=== PATIENT | male | born 1935 | race Caucasian/White ===

== ENCOUNTER 2017-03-31 14:51 | Emergency (ER) | payer MEDICARE, MEDICAID, SELFPAY | END 2017-03-31 17:10 | disposition home or self-care (01) | PROVIDERS: Emergency Provider Emergency Medicine; Family Provider Internal Medicine Adolescent Medicine; Visit Provider Emergency Medicine | DX: R27.0 Ataxia, unspecified (principal); G45.0 Vertebro-basilar artery syndrome; Z95.0 Presence of cardiac pacemaker; N18.3 Chronic kidney disease, stage 3 (moderate); I25.10 Atherosclerotic heart disease of native coronary artery without angina pectoris; I10 Essential (primary) hypertension; E78.5 Hyperlipidemia, unspecified; Z79.899 Other long term (current) drug therapy; Z88.0 Allergy status to penicillin; R06.09 Other forms of dyspnea | CPT/HCPCS: 70450; 80053; 82550; 82553; 83880; 84484; 85025; 93005; 96365; 99284 ==

== ENCOUNTER → 2017-04-03 | Outpatient (CLI) | payer MEDICARE, MEDICAID, SELFPAY | PROVIDERS: Visit Provider Nurse Practitioner Family | DX: E86.0 Dehydration (principal); D64.9 Anemia, unspecified | CPT/HCPCS: 36415; 80053; 85025 ==

== ENCOUNTER → 2017-05-13 08:14 | Outpatient (CLI) | payer MEDICARE, MEDICAID, SELFPAY ==
[2017-05-13 08:38] LABS: Basophils % 0.2 % (0.1-2.0); Eosinophils # 0.2 K/mm3 (0.0-0.4); Eosinophils % 2.4 % (0.1-12.0); Hematocrit 31.8 % (42.0-52.0); Hemoglobin 10.4 g/dL (14.1-18.0); Lymphocytes # 1.2 K/mm3 (0.7-4.5); Lymphocytes % 19.8 K/mm3 (10-50); Mean Corpuscular HGB Conc 32.8 g/dL (31.8-35.4); Mean Corpuscular Hemoglobin 31.3 pg (27.0-31.2); Mean Corpuscular Volume 95.7 fl (80-94); Mean Platelet Volume 9.9 fl (7.4-10.4); Monocytes # 0.6 K/mm3 (0.1-1.0); Monocytes % 8.8 % (1.7-9.3); Neutrophils # 4.3 K/mm3 (1.8-7.8); Neutrophils % 68.8 % (37.0-80.0); Platelet Count 289 K/mm3 (142-424); Red Blood Count 3.32 M/mm3 (4.60-6.20); Red Cell Distribution Width 16.8 % (11.5-17.5); White Blood Count 6.2 K/mm3 (4.8-10.8)
[2017-05-13 10:08] LABS: Albumin Level 3.8 gm/dL (3.4-5.0); Blood Urea Nitrogen 20 mg/dL (7-18); Calcium 8.6 mg/dL (8.5-10.1); Chloride 105 mmol/L (98-107); Potassium 4.2 mmoL/L (3.5-5.1); Sodium 145 mmol/L (136-145)
[2017-05-13 10:19] LABS: Alanine Aminotransferase 22 U/L (12-78); Albumin/Globulin Ratio 1.2 (1.1-1.8); Alkaline Phosphatase 109 U/L (46-116); Anion Gap 15.2 mEq/L (5-15); Aspartate Amino Transferase 21 U/L (15-37); Bilirubin,Total 0.4 mg/dL (0.2-1.0); Carbon Dioxide 29 mmol/L (21.0-32.0); Creatinine,Serum 1.35 mg/dL (0.70-1.30); Estimated Glomerular Filt Rate 50 ml/min (>60); GFR (African American) 61 ML/MIN (>60); Globulin 3.2 gm/dl (1.3-3.2); Glucose 116 mg/dL (74-106); Phosphorous 3.4 mg/dL (2.4-4.9)
== END ==
PROVIDERS: PCP Internal Medicine Adolescent Medicine; Visit Provider Internal Medicine Nephrology
DX: N18.3 Chronic kidney disease, stage 3 (moderate) (principal); D64.9 Anemia, unspecified
CPT/HCPCS: 36415; 80053; 84100; 85025

== ENCOUNTER 2017-06-03 05:45 | Emergency (ER) | payer MEDICARE, MEDICAID, SELFPAY ==
[2017-06-03 05:48] VITALS: BP 141/69; PULSE 71; RESP 18; TEMP 36.4; O2SAT 99; BMI 25.2
--- NOTE | 2017-06-03 06:01 | XR_ITS ---
XR hip RT 2-3V w/pelvis HISTORY: ITS.REASON: S/P FALL RIGHT HIP PAIN ORDERING PHYSICIAN: Mauro Putnam MD PATIENT AGE: 82 years COMPARISON: 12/17/2011 FINDINGS: Status post prior ORIF right intertrochanteric fracture with gamma nail and intramedullary kristin present. No acute fracture evident. Generalized vascular calcification. No evidence of prosthesis fracture or dislocation. 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 IMPRESSION: 1. No acute finding. 2. Prior ORIF old right intertrochanteric hip fracture
--- NOTE | 2017-06-03 06:39 | HMH.EDGENADL ---
ED Disposition Clinical Impression: Contusion of hip, right Qualifiers: Encounter type: initial encounter Qualified Code(s): S70.01XA - Contusion of right hip, initial encounter Fall Qualifiers: Encounter type: initial encounter Qualified Code(s): W19.XXXA - Unspecified fall, initial encounter Disposition: Home, Self-Care Condition on Discharge: Good Instructions: How to Prevent Falls Additional Instructions: call pcp for follow up - Critical Care Critical Care Time: No Attestation: On 06/03/17, the high probability of a clinically significant, sudden or life threatening deterioration of the following system(s) required my full and direct attention, intervention and personal management. The time I documented below is in addition to time spent performing reported procedures but includes the following listed in this critical care notation. Medical Decision Making - Medical Records Medical records reviewed: Yes: I reviewed the patient's medical records. Vital Signs: 06/03/17 05:48 Temperature 97.5 F L Temperature Source Oral Pulse Rate [Right Brachial] 71 Respiratory Rate 18 Blood Pressure [Right Arm] 141/69 Blood Pressure Mean [Right Arm] 93 Blood Pressure Source [Right Arm] Automatic Cuff Blood Pressure Position [Right Arm] Sitting 02 Sat by Pulse Oximetry 99 Oxygen Delivery Method Room Air - Lab Data Lab results reviewed: Yes: I reviewed the patient's lab results. Orders (Tests/Meds): ED MEDICATIONS Discontinued Medications Generic Name Dose Route Start Last Admin Trade Name Freq PRN Reason Stop Dose Admin Acetaminophen 650 mg 06/03/17 05:59 06/03/17 06:04 Acetaminophen 325mg Tab PO 06/03/17 06:00 650 mg ONCE ONE Administration - Radiology Data #1 Image(s): Hip Image Reviewed: Yes I reviewed the patient's radiology image Preliminary Findings: No Fracture Seen - Devin Inquiry Pt receiving controlled substance: No General Adult HPI - General Chief complaint: PAIN Stated complaint: fell 06/02/17 right hip injury Time Seen by Provider: 06/03/17 06:39 Mode of Arrival: Family Vehicle Source of Information: Patient, Spouse, Medical Record Limitations: No Limitations Description of Symptoms (Recalled from ER Triage Doc. by RN): S/P FALL YESTERDAY C/O RIGHT HIP PAIN. - History of Present Illness HPI narrative: trip injury rt hip with no other c/o Onset (ago): hour(s) Location: pelvis Severity: moderate - Related Data Allergies Allergy/AdvReac Type Severity Reaction Status Date / Time influenza virus vaccine, Allergy Unknown Verified 06/03/17 05:58 specific [INFLUENZA VIRUS VACC,SPECIFIC] Penicillins [PENICILLINS] Allergy Unknown I-RASH Verified 06/03/17 05:58 [facility] History I have reviewed the patient's past medical history: Yes Medical History: Reports:: Cancer (SKIN), Internal Pacemaker Denies:: Diabetes Mellitus Type 1, Diabetes Mellitus Type 2, MRSA Laterality Cases: Right: Arthroscopy Hip Other Surgeries: Yes: Pacemaker Amputation: No Fractures: No - Social History Smoking Status: Never smoker Alcohol Intake: never - Psychiatric History Expresses thoughts of harming self/others: None Suicide Plan Description: No Plan ROS Obtained: Yes All systems reviewed & no additional complaints - Constitutional Constitutional: Denies fever(s) - Eyes Eyes: Denies change in vision - Cardiovascular Cardiovascular: Denies chest pain at rest - Respiratory Respiratory: No cough - Gastrointestinal Gastrointestingal: Denies: abdominal pain, bloating - Genitourinary Male Genitourinary: Denies hematuria - Musculoskeletal Musculoskeletal: Reports joint pain, Denies back pain, Denies neck pain - Integumentary/Breasts Skin/Breast: Denies rash - Neurologic Neurologic: Denies tingling/numbness/burning sensations, Denies seizure-like activity Physical Exam - General General appearance: alert - Head Head exam
--- NOTE | 2017-06-03 06:42 | ED_ITS ---
ED Disposition Clinical Impression: Contusion of hip, right Qualifiers: Encounter type: initial encounter Qualified Code(s): S70.01XA - Contusion of right hip, initial encounter Fall Qualifiers: Encounter type: initial encounter Qualified Code(s): W19.XXXA - Unspecified fall, initial encounter Disposition: Home, Self-Care Condition on Discharge: Good Instructions: How to Prevent Falls Additional Instructions: call pcp for follow up - Critical Care Critical Care Time: No Attestation: On 06/03/17, the high probability of a clinically significant, sudden or life threatening deterioration of the following system(s) required my full and direct attention, intervention and personal management. The time I documented below is in addition to time spent performing reported procedures but includes the following listed in this critical care notation. Medical Decision Making - Medical Records Medical records reviewed: Yes: I reviewed the patient's medical records. Vital Signs: 06/03/17 05:48 Temperature 97.5 F L Temperature Source Oral Pulse Rate [Right Brachial] 71 Respiratory Rate 18 Blood Pressure [Right Arm] 141/69 Blood Pressure Mean [Right Arm] 93 Blood Pressure Source [Right Arm] Automatic Cuff Blood Pressure Position [Right Arm] Sitting 02 Sat by Pulse Oximetry 99 Oxygen Delivery Method Room Air - Lab Data Lab results reviewed: Yes: I reviewed the patient's lab results. Orders (Tests/Meds): ED MEDICATIONS Discontinued Medications Generic Name Dose Route Start Last Admin Trade Name Freq PRN Reason Stop Dose Admin Acetaminophen 650 mg 06/03/17 05:59 06/03/17 06:04 Acetaminophen 325mg Tab PO 06/03/17 06:00 650 mg ONCE ONE Administration - Radiology Data #1 Image(s): Hip Image Reviewed: Yes I reviewed the patient's radiology image Preliminary Findings: No Fracture Seen - Devin Inquiry Pt receiving controlled substance: No General Adult HPI - General Chief complaint: PAIN Stated complaint: fell 06/02/17 right hip injury Time Seen by Provider: 06/03/17 06:39 Mode of Arrival: Family Vehicle Source of Information: Patient, Spouse, Medical Record Limitations: No Limitations Description of Symptoms (Recalled from ER Triage Doc. by RN): S/P FALL YESTERDAY C/O RIGHT HIP PAIN. - History of Present Illness HPI narrative: trip injury rt hip with no other c/o Onset (ago): hour(s) Location: pelvis Severity: moderate - Related Data Allergies Allergy/AdvReac Type Severity Reaction Status Date / Time influenza virus vaccine, Allergy Unknown Verified 06/03/17 05:58 specific [INFLUENZA VIRUS VACC,SPECIFIC] Penicillins [PENICILLINS] Allergy Unknown I-RASH Verified 06/03/17 05:58 [facility] History I have reviewed the patient's past medical history: Yes Medical History: Reports:: Cancer (SKIN), Internal Pacemaker Denies:: Diabetes Mellitus Type 1, Diabetes Mellitus Type 2, MRSA Laterality Cases: Right: Arthroscopy Hip Other Surgeries: Yes: Pacemaker Amputation: No Fractures: No - Social History Smoking Status: Never smoker Alcohol Intake: never - Psychiatric History Expresses thoughts of harming self/others: None Suicide Plan Description: No Plan ROS Obt
[2017-06-03 06:50] VITALS: BP 113/62; PULSE 72; RESP 20; TEMP 36.4; O2SAT 98
== END 2017-06-03 06:51 | disposition home or self-care (01) ==
PROVIDERS: Emergency Provider Emergency Medicine; Family Provider Internal Medicine Adolescent Medicine
DX: S70.01XA Contusion of right hip, initial encounter (principal); W19.XXXA Unspecified fall, initial encounter; Y92.9 Unspecified place or not applicable; Y99.9 Unspecified external cause status; Z85.828 Personal history of other malignant neoplasm of skin; Z95.0 Presence of cardiac pacemaker
CPT/HCPCS: 73502; 99282

== ENCOUNTER → 2017-06-13 09:38 | Outpatient (CLI) | payer MEDICARE, MEDICAID, SELFPAY ==
--- NOTE | 2017-06-13 10:03 | XR_ITS ---
XR tibia fibula RT 2V COMPARISON: None HISTORY: Right lower leg swelling, suspect cellulitis TECHNIQUE: AP lateral views FINDINGS: The tibia and fibula appear intact with no evidence of recent or old fracture. There is rather severe degenerative change of the knee joint which is at the top of the [id number] showing almost [id number] appearance of the medial joint space. There is mild arteriosclerotic calcification of the posterior tibial artery, is the patient diabetic? The soft tissues appear grossly normal with no obvious soft tissue swelling noted. IMPRESSION: Marked degenerative changes of knee joint. No acute abnormality of the tibia or fibula noted.
--- NOTE | 2017-06-13 10:03 | XR_ITS ---
XR foot RT min 3V COMPARISON: None HISTORY: Right foot pain and swelling, suspect cellulitis TECHNIQUE: AP lateral and oblique views FINDINGS: There are prominent spurs the calcaneus at insertion of plantar tendon and Achilles tendon. There is a prominent plantar arch. There are hammertoe deformities of the second through fifth toes. There is no evidence of recent or old fracture. There is mild soft tissue swelling along medial aspect of the forefoot. Arterial calcification is again noted. IMPRESSION: Calcaneal spurs and mild pes cavus with mild diffuse soft tissue swelling of the forefoot which may be secondary to cellulitis.
[2017-06-13 10:09] LABS: Basophils % 0.2 % (0.1-2.0); Eosinophils # 0.1 K/mm3 (0.0-0.4); Eosinophils % 0.9 % (0.1-12.0); Hematocrit 31.8 % (42.0-52.0); Hemoglobin 9.9 g/dL (14.1-18.0); Lymphocytes # 1.1 K/mm3 (0.7-4.5); Lymphocytes % 17.2 K/mm3 (10-50); Mean Corpuscular HGB Conc 31.2 g/dL (31.8-35.4); Mean Corpuscular Hemoglobin 30.4 pg (27.0-31.2); Mean Corpuscular Volume 97.6 fl (80-94); Mean Platelet Volume 9.9 fl (7.4-10.4); Monocytes # 0.7 K/mm3 (0.1-1.0); Monocytes % 10.4 % (1.7-9.3); Neutrophils # 4.6 K/mm3 (1.8-7.8); Neutrophils % 71.3 % (37.0-80.0); Platelet Count 306 K/mm3 (142-424); Red Blood Count 3.26 M/mm3 (4.60-6.20); Red Cell Distribution Width 16.5 % (11.5-17.5); White Blood Count 6.5 K/mm3 (4.8-10.8)
[2017-06-13 10:18] LABS: Alanine Aminotransferase 22 U/L (12-78); Albumin Level 3.5 gm/dL (3.4-5.0); Albumin/Globulin Ratio 0.9 (1.1-1.8); Alkaline Phosphatase 141 U/L (46-116); Aspartate Amino Transferase 17 U/L (15-37); Bilirubin,Total 0.3 mg/dL (0.2-1.0); Blood Urea Nitrogen 18 mg/dL (7-18); Calcium 8.6 mg/dL (8.5-10.1); Carbon Dioxide 31 mmol/L (21.0-32.0); Chloride 101 mmol/L (98-107); Creatinine,Serum 1.51 mg/dL (0.70-1.30); Estimated Glomerular Filt Rate 44 ml/min (>60); GFR (African American) 54 ML/MIN (>60); Globulin 3.9 gm/dl (1.3-3.2); Glucose 125 mg/dL (74-106); Sodium 137 mmol/L (136-145); Total Protein,Serum 7.4 gm/dL (6.4-8.2)
== END ==
PROVIDERS: Visit Provider Nurse Practitioner Family
DX: L03.115 Cellulitis of right lower limb (principal)
CPT/HCPCS: 36415; 73590; 73630; 80053; 85025; 87040

== ENCOUNTER → 2017-07-07 10:09 | Outpatient (CLI) | payer MEDICARE, MEDICAID, SELFPAY ==
--- NOTE | 2017-07-07 10:29 | NVE_ITS ---
Venous Exam Indications: 729.5 Pain in limb. IMPRESSIONS 1. There is no evidence of significant Reflux. 2. No evidence of deep or superficial vein thrombosis involving the right lower extremity Complete lower extremity venous duplex evaluation. Doppler flow study including spectral analysis, color and lopez scale imaging. Location: Vascular laboratory. Patient status: Outpatient. Tables: Venous flow and imaging: + + + + + Location Overall Flow properties Comments + + + + + Right common femoral Patent Normal phasicity; spontaneous; normal augmentation; compressible + + + + + Right saphenofemoral Patent Compressible junction + + + + + Right profunda Patent Compressible femoral + + + + + Right femoral Patent Normal phasicity; spontaneous; normal augmentation; compressible + + + + + Right greater Patent Normal phasicity; saphenous spontaneous; normal augmentation; compressible + + + + + Right popliteal Patent Normal phasicity; spontaneous; normal augmentation; compressible + + + + + Right posterior Patent Compressible tibial + + + + + Right peroneal Difficult Difficult to study image. + + + + + Right gastrocnemius Patent Compressible + + + + + Right soleal Patent Compressible + + + + + (Report amended ) Electronically signed by: Ray Lo [id number]
== END ==
PROVIDERS: Family Provider Internal Medicine Adolescent Medicine; PCP Internal Medicine Adolescent Medicine; Visit Provider Nurse Practitioner Family
DX: L03.115 Cellulitis of right lower limb (principal); M79.89 Other specified soft tissue disorders
CPT/HCPCS: 93971

== ENCOUNTER → 2017-07-31 10:03 | Outpatient (CLI) | payer MEDICARE, MEDICAID, SELFPAY ==
[2017-07-31 11:07] LABS: Basophils % 0.1 % (0.1-2.0); Eosinophils # 0.1 K/mm3 (0.0-0.4); Hemoglobin 10.3 g/dL (14.1-18.0); Lymphocytes # 0.9 K/mm3 (0.7-4.5); Lymphocytes % 15.4 K/mm3 (10-50); Mean Corpuscular Hemoglobin 31.2 pg (27.0-31.2); Mean Corpuscular Volume 97.4 fl (80-94); Mean Platelet Volume 9.3 fl (7.4-10.4); Monocytes # 0.6 K/mm3 (0.1-1.0); Monocytes % 9.6 % (1.7-9.3); Neutrophils # 4.3 K/mm3 (1.8-7.8); Neutrophils % 73.8 % (37.0-80.0); Platelet Count 273 K/mm3 (142-424); Red Blood Count 3.29 M/mm3 (4.60-6.20); Red Cell Distribution Width 16.5 % (11.5-17.5); White Blood Count 5.8 K/mm3 (4.8-10.8)
[2017-07-31 12:01] LABS: C-Reactive Protein < 0.2 mg/L (0.0-0.9)
[2017-07-31 12:30] LABS: Erythrocyte Sedimentation Rate 53 mm/hr (0-20)
== END ==
PROVIDERS: Visit Provider Podiatrist
DX: L03.90 Cellulitis, unspecified (principal)
CPT/HCPCS: 36415; 85025; 85651; 86140

== ENCOUNTER → 2017-08-13 13:58 | Outpatient (CLI) | payer MEDICARE, MEDICAID, SELFPAY ==
--- NOTE | 2017-08-13 13:59 | US_ITS ---
US Arterial Ankle Brachial Ind ITS.REASON: non healing ulcer ORDERING PHYSICIAN: Elsi Avendaño DPM PATIENT AGE: 82 years TECHNIQUE: Segmental pressures obtained of both right and left leg. These are compared to brachial blood pressure to yield index at each level sampled including summary KUMAR. The data sheets from the procedure are available in PACS FINDINGS Rest study only performed today No prior studies available for comparison. Blood pressures reported are in millimeters mercury. RIGHT LEG KUMAR = .9. Right TBI equals 0.7 Brachial BP: 150 Thigh BP: 172 Calf BP: >254 Ankle PT: 136 Ankle DP : 170 Digit =97 LEFT LEG KUMAR = 1.1 Left TBI 0.6 Brachial BPD: 143 Thigh BP: 174 Calf BP: >254 Ankle PT:162 Ankle DP: 172 Digit = 95 Pulses and waveforms: Normal IMPRESSION: The ABIs as reported above are within normal limits. Waveforms and pulses are also unremarkable. Also are noncompressible at the calves. The TBIs are slightly low suggesting small vessel disease
== END ==
PROVIDERS: Family Provider Internal Medicine Adolescent Medicine; PCP Internal Medicine Adolescent Medicine; Visit Provider Podiatrist
DX: L97.511 Non-pressure chronic ulcer of other part of right foot limited to breakdown of skin (principal)
CPT/HCPCS: 93922

== ENCOUNTER → 2017-12-18 07:57 | Outpatient (CLI) | payer MEDICARE, MEDICAID, SELFPAY ==
[2017-12-18 08:15] LABS: Basophils % 0.2 % (0.1-2.0); Eosinophils # 0.1 K/mm3 (0.0-0.4); Eosinophils % 1.1 % (0.1-12.0); Hematocrit 30.4 % (42.0-52.0); Hemoglobin 9.9 g/dL (14.1-18.0); Lymphocytes # 1.3 K/mm3 (0.7-4.5); Lymphocytes % 15.8 K/mm3 (10-50); Mean Corpuscular HGB Conc 32.6 g/dL (31.8-35.4); Mean Corpuscular Hemoglobin 31.5 pg (27.0-31.2); Mean Corpuscular Volume 96.8 fl (80-94); Monocytes # 0.7 K/mm3 (0.1-1.0); Monocytes % 8.8 % (1.7-9.3); Neutrophils # 6.1 K/mm3 (1.8-7.8); Neutrophils % 74.1 % (37.0-80.0); Platelet Count 252 K/mm3 (142-424); Red Blood Count 3.14 M/mm3 (4.60-6.20); Red Cell Distribution Width 17.1 % (11.5-17.5); White Blood Count 8.2 K/mm3 (4.8-10.8)
[2017-12-18 10:51] LABS: Alanine Aminotransferase 22 U/L (12-78); Albumin Level 3.4 gm/dL (3.4-5.0); Albumin/Globulin Ratio 1.1 (1.1-1.8); Alkaline Phosphatase 111 U/L (46-116); Anion Gap 13.3 mEq/L (5-15); Aspartate Amino Transferase 16 U/L (15-37); Bilirubin,Total 0.6 mg/dL (0.2-1.0); Blood Urea Nitrogen 20 mg/dL (7-18); Calcium 8.5 mg/dL (8.5-10.1); Carbon Dioxide 30 mmol/L (21.0-32.0); Chloride 105 mmol/L (98-107); Chol/HDL Ratio 3.5 (1-3.5); Cholesterol 145 mg/dL (140-200); Creatinine,Serum 1.24 mg/dL (0.70-1.30); Estimated Glomerular Filt Rate 56 ml/min (>60); GFR (African American) 67 ML/MIN (>60); Glucose 107 mg/dL (74-106); HDL Cholesterol 42 mg/dL (27-67); LDL Cholesterol 72 mg/dL (0-130); Potassium 4.3 mmoL/L (3.5-5.1); Sodium 144 mmol/L (136-145); Thyroid Stimulating Hormone 1.19 uIU/ml (0.358-3.740); Total Protein,Serum 6.4 gm/dL (6.4-8.2); Triglycerides 156 mg/dL (30-200); VLDL Cholesterol 31 mg/dL (0-40)
[2017-12-22 05:22] LABS: Treponema pallidum Ab (FTA-ABS Non Reactive (Non Reactive)
== END ==
PROVIDERS: PCP Internal Medicine Adolescent Medicine; Visit Provider Nurse Practitioner Family
DX: E78.5 Hyperlipidemia, unspecified (principal); N18.2 Chronic kidney disease, stage 2 (mild); M10.9 Gout, unspecified; E03.9 Hypothyroidism, unspecified; Z20.2 Contact with and (suspected) exposure to infections with a predominantly sexual mode of transmission
CPT/HCPCS: 36415; 80053; 80061; 84443; 84550; 85025; 86780

== ENCOUNTER → 2018-03-26 09:57 | Outpatient (CLI) | payer MEDICARE, MEDICAID, SELFPAY ==
[2018-03-26 10:53] LABS: Basophils % 0.3 % (0.1-2.0); Eosinophils # 0.1 K/mm3 (0.0-0.4); Eosinophils % 1.3 % (0.1-12.0); Hematocrit 31.9 % (42.0-52.0); Hemoglobin 10.1 g/dL (14.1-18.0); Lymphocytes # 1.2 K/mm3 (0.7-4.5); Lymphocytes % 17.9 % (10-50); Mean Corpuscular HGB Conc 31.7 g/dL (31.8-35.4); Mean Corpuscular Volume 97.9 fl (80-94); Mean Platelet Volume 9.1 fl (7.4-10.4); Monocytes # 0.6 K/mm3 (0.1-1.0); Monocytes % 9.2 % (1.7-9.3); Neutrophils # 4.7 K/mm3 (1.8-7.8); Neutrophils % 71.3 % (37.0-80.0); Platelet Count 310 K/mm3 (142-424); Red Blood Count 3.26 M/mm3 (4.60-6.20); Red Cell Distribution Width 17.4 % (11.5-17.5); White Blood Count 6.6 K/mm3 (4.8-10.8)
[2018-03-26 11:12] LABS: Anion Gap 13.2 mEq/L (5-15); Blood Urea Nitrogen 18 mg/dL (7-18); Calcium 8.7 mg/dL (8.5-10.1); Carbon Dioxide 29 mmol/L (21.0-32.0); Chloride 104 mmol/L (98-107); Creatinine,Serum 1.51 mg/dL (0.70-1.30); Estimated Glomerular Filt Rate 44 ml/min (>60); GFR (African American) 54 ML/MIN (>60); Glucose 129 mg/dL (74-106); Potassium 4.2 mmoL/L (3.5-5.1); Sodium 142 mmol/L (136-145)
== END ==
PROVIDERS: PCP Internal Medicine Adolescent Medicine; Visit Provider Physician Assistant
DX: I65.21 Occlusion and stenosis of right carotid artery (principal); I10 Essential (primary) hypertension; N18.3 Chronic kidney disease, stage 3 (moderate); S70.01XA Contusion of right hip, initial encounter; W19.XXXA Unspecified fall, initial encounter; Z95.0 Presence of cardiac pacemaker
CPT/HCPCS: 36415; 80048; 85025

== ENCOUNTER → 2018-04-02 08:56 | Outpatient (CLI) | payer MEDICARE, MEDICAID, SELFPAY ==
--- NOTE | 2018-04-02 08:59 | CI_ITS ---
Cerebrovascular Exam Indications: 433.10 Occlusion/stenosis of carotid artery without cerebral infarction. IMPRESSIONS 1. Study suggests 50-69% stenosis involving the right internal carotid artery. 2. Study suggests 100% stenosis involving the left internal carotid artery. No change from the study of 31-Jan-2015. Velocities more reduced in left common than on previous study History: Coronary artery disease. Coronary artery disease. Risk factors: Hypertension. Hyperlipidemia. PPM Labs, prior tests, procedures, and surgery: Right endarterectomy. Labs, prior tests, procedures, and surgery: Right endarterectomy. Carotid duplex study. Complete study and Doppler flow study including spectral analysis, color and lopez scale imaging. Location: Vascular laboratory. Patient status: Outpatient. Tables: Arterial flow: + +--------+--------+ Location V sys V ed + +--------+--------+ Right CCA - proximal 65.2cm/s 16.5cm/s + +--------+--------+ Right CCA - distal 123cm/s 28.3cm/s + +--------+--------+ Right ECA 142cm/s -------- + +--------+--------+ Right ICA - proximal 126cm/s 28.5cm/s + +--------+--------+ Right ICA - mid 124cm/s 27.5cm/s + +--------+--------+ Right ICA - distal 131cm/s 30.4cm/s + +--------+--------+ Right vertebral 88.4cm/s -------- + +--------+--------+ Left CCA - proximal 14.3cm/s 2.8cm/s + +--------+--------+ Left CCA - distal 25.1cm/s 6.6cm/s + +--------+--------+ Left ECA 67.3cm/s -------- + +--------+--------+ Velocity ratios: + + + + Right, V sys Right, V ed + + + + Max ICA/dist CCA 1.07 1.07 + + + + (Report amended ) Electronically signed by: Ray Lo [id number]
== END ==
PROVIDERS: PCP Internal Medicine Adolescent Medicine; Visit Provider Internal Medicine
DX: I65.21 Occlusion and stenosis of right carotid artery; N18.3 Chronic kidney disease, stage 3 (moderate); Z95.0 Presence of cardiac pacemaker; I51.9 Heart disease, unspecified
CPT/HCPCS: 93306; 93880

== ENCOUNTER 2018-05-24 05:00 | Emergency (ER) | payer MEDICARE, MEDICAID, SELFPAY ==
[2018-05-24 05:19] VITALS: BP 149/75; PULSE 70; RESP 16; TEMP 36.4; O2SAT 98; BMI 26.3
--- NOTE | 2018-05-24 05:39 | HMH.EDGENADL ---
ED Disposition Clinical Impression: URI (upper respiratory infection), Upper respiratory infection Disposition: Home, Self-Care Condition on Discharge: Good Instructions: DI for Viral Upper Respiratory Infection -- Adult Prescriptions: Azithromycin [Zithromax 250mg tab] 250 mg PO DIRECTED #6 tab Fluticasone Propionate [Flonase 50mcg nasal spray 16gm] 2 spr NS DAILY #1 bottle Referrals: Jonathan Fitzpatrick MD [Primary Care Provider] - Time of Disposition: 05:46 - Critical Care Critical Care Time: No Attestation: On 05/24/18, the high probability of a clinically significant, sudden or life threatening deterioration of the following system(s) required my full and direct attention, intervention and personal management. The time I documented below is in addition to time spent performing reported procedures but includes the following listed in this critical care notation. Medical Decision Making - Devin Inquiry Pt receiving controlled substance: No Devin was queried for this patient: No Vital Signs: 05/24/18 05:19 Temperature 97.6 F Temperature Source Oral Pulse Rate [Right Radial] 70 Respiratory Rate 16 Blood Pressure [Right Arm] 149/75 H Blood Pressure Mean [Right Arm] 99 02 Sat by Pulse Oximetry 98 Orders (Tests/Meds): ORDERS Category Date Time Status Flu A&B Antigens, Rapid [Rapid Influenza A&B Antigens] Lab 05/24/18 05:25 Ordered Stat General Adult HPI - General Chief complaint: Upper Respiratory Infection Stated complaint: cough,head congested,headache Time Seen by Provider: 05/24/18 05:15 Mode of Arrival: Ambulatory Source of Information: Patient, Relative Limitations: No Limitations Description of Symptoms (Recalled from ER Triage Doc. by RN): head, nasal, and sinus congestion x 1 day. denies cough or fever. - History of Present Illness HPI narrative: nasal congestion, facial pain, not febrile. Family member relates he gets an infection rarely and typically responds to abx. - Related Data Home Medications Medication Instructions Recorded Confirmed allopurinol 100 mg tablet 100 mg PO DAILY 07/31/17 04/28/18 atenolol 25 mg tablet 25 mg PO DAILY 07/31/17 04/28/18 clopidogrel 75 mg tablet 75 mg PO DAILY 07/31/17 04/28/18 doxazosin 4 mg tablet 4 mg PO DAILY 07/31/17 04/28/18 famotidine 20 mg tablet 20 mg PO QHS 07/31/17 04/28/18 furosemide 40 mg tablet 40 mg PO DAILY 07/31/17 04/28/18 gabapentin 100 mg capsule 100 mg PO QHS 07/31/17 04/28/18 levothyroxine 50 mcg capsule 50 mcg PO DAILY 07/31/17 04/28/18 potassium chloride ER 10 mEq 10 meq PO BID 07/31/17 04/28/18 capsule,extended release pravastatin 40 mg tablet 40 mg PO QHS 07/31/17 04/28/18 Previous Rx's Medication Instructions Recorded Hydrocortisone [Hydrocortisone 1% 30 gm TP BID #1 tube 04/28/18 Cream 30gm Tube] Azithromycin [Zithromax 250mg 250 mg PO DIRECTED #6 tab 05/24/18 tab] Fluticasone Propionate [Flonase 2 spr NS DAILY #1 bottle 05/24/18 50mcg nasal spray 16gm] Allergies Allergy/AdvReac Type Severity Reaction Status Date / Time influenza virus vaccine, Allergy Unknown Verified 05/24/18 05:23 specific [INFLUENZA VIRUS VACC,SPECIFIC] Penicillins [PENICILLINS] Allergy Unknown I-RASH Verified 05/24/18 05:23 [facility] History - Hepatitis A Screen Drug use history?: No High risk sexual behaviors?: No History of sexually transmitted infection?: No Currently employed?: No Childcare worker?: No Do you have indoor plumbing?: Yes Do you have electricity?: Yes Attestation statement:: This patient has been screened for Hepatitis A risk factors. I have reviewed the patient's past medical history: Yes Medical History: Reports:: Gastroesophageal Reflux Disease(GERD), Hyperlipidemia, Hypertension, Internal Pacemaker Denies:: Cancer, Diabetes Mellitus Type 1, Diabetes Mellitus Type 2, MRSA Other Medical History: Reports: Arthritis, Hypothyroidism Laterality [place]
--- NOTE | 2018-05-24 05:42 | ED_ITS ---
ED Disposition Clinical Impression: URI (upper respiratory infection), Upper respiratory infection Disposition: Home, Self-Care Condition on Discharge: Good Instructions: DI for Viral Upper Respiratory Infection -- Adult Prescriptions: Azithromycin [Zithromax 250mg tab] 250 mg PO DIRECTED #6 tab Fluticasone Propionate [Flonase 50mcg nasal spray 16gm] 2 spr NS DAILY #1 bottle Referrals: Jonathan Fitzpatrick MD [Primary Care Provider] - Time of Disposition: 05:46 - Critical Care Critical Care Time: No Attestation: On 05/24/18, the high probability of a clinically significant, sudden or life threatening deterioration of the following system(s) required my full and direct attention, intervention and personal management. The time I documented below is in addition to time spent performing reported procedures but includes the following listed in this critical care notation. Medical Decision Making - Devin Inquiry Pt receiving controlled substance: No Devin was queried for this patient: No Vital Signs: 05/24/18 05:19 Temperature 97.6 F Temperature Source Oral Pulse Rate [Right Radial] 70 Respiratory Rate 16 Blood Pressure [Right Arm] 149/75 H Blood Pressure Mean [Right Arm] 99 02 Sat by Pulse Oximetry 98 Orders (Tests/Meds): ORDERS Category Date Time Status Flu A&B Antigens, Rapid [Rapid Influenza A&B Antigens] Lab 05/24/18 05:25 Ordered Stat General Adult HPI - General Chief complaint: Upper Respiratory Infection Stated complaint: cough,head congested,headache Time Seen by Provider: 05/24/18 05:15 Mode of Arrival: Ambulatory Source of Information: Patient, Relative Limitations: No Limitations Description of Symptoms (Recalled from ER Triage Doc. by RN): head, nasal, and sinus congestion x 1 day. denies cough or fever. - History of Present Illness HPI narrative: nasal congestion, facial pain, not febrile. Family member relates he gets an infection rarely and typically responds to abx. - Related Data Home Medications Medication Instructions Recorded Confirmed allopurinol 100 mg tablet 100 mg PO DAILY 07/31/17 04/28/18 atenolol 25 mg tablet 25 mg PO DAILY 07/31/17 04/28/18 clopidogrel 75 mg tablet 75 mg PO DAILY 07/31/17 04/28/18 doxazosin 4 mg tablet 4 mg PO DAILY 07/31/17 04/28/18 famotidine 20 mg tablet 20 mg PO QHS 07/31/17 04/28/18 furosemide 40 mg tablet 40 mg PO DAILY 07/31/17 04/28/18 gabapentin 100 mg capsule 100 mg PO QHS 07/31/17 04/28/18 levothyroxine 50 mcg capsule 50 mcg PO DAILY 07/31/17 04/28/18 potassium chloride ER 10 mEq 10 meq PO BID 07/31/17 04/28/18 capsule,extended release pravastatin 40 mg tablet 40 mg PO QHS 07/31/17 04/28/18 Previous Rx's Medication Instructions Recorded Hydrocortisone [Hydrocortisone 1% 30 gm TP BID #1 tube 04/28/18 Cream 30gm Tube] Azithromycin [Zithromax 250mg 250 mg PO DIRECTED #6 tab 05/24/18 tab] Fluticasone Propionate [Flonase 2 spr NS DAILY #1 bottle 05/24/18 50mcg nasal spray 16gm] Allergies Allergy/AdvReac Type Severity Reaction Status Date / Time in
[2018-05-24 06:14] VITALS: BP 118/76; PULSE 79; RESP 16; TEMP 36.6; O2SAT 99
== END 2018-05-24 06:15 | disposition home or self-care (01) ==
PROVIDERS: Emergency Provider Emergency Medicine; PCP Internal Medicine Adolescent Medicine
DX: J06.9 Acute upper respiratory infection, unspecified (principal); K21.9 Gastro-esophageal reflux disease without esophagitis; E78.5 Hyperlipidemia, unspecified; I10 Essential (primary) hypertension; E03.9 Hypothyroidism, unspecified; Z96.641 Presence of right artificial hip joint
CPT/HCPCS: 87275; 87276; 99282

== ENCOUNTER → 2018-09-25 09:14 | Outpatient (CLI) | payer MEDICARE, MEDICAID, SELFPAY ==
--- NOTE | 2018-09-25 09:16 | CI_ITS ---
Cerebrovascular Exam Indications: Follow-up carotid 433.10. IMPRESSIONS 1. The bilateral vertebral arteries are patent with normal antegrade flow. 2. Study suggests 50-69% stenosis involving the right internal carotid artery. 3. Study suggests occlusion involving the left internal carotid artery. No change from the study of 01-Feb-2015. 4. Difficult exam suggest further testing Carotid duplex study. Complete study and Doppler flow study including spectral analysis, color and lopez scale imaging. Height: Height: 170.2cm. Height: 67in. Weight: Weight: 73.5kg. Weight: 161.7lb. Body mass index: BMI: 25.4kg/m^2. Body surface area: BSA: 1.87m^2. Location: Vascular laboratory. Patient status: Outpatient. Tables: Arterial flow: + +--------+--------+ Location V sys V ed + +--------+--------+ Right CCA - proximal 85.5cm/s 27cm/s + +--------+--------+ Right CCA - distal 128cm/s 38cm/s + +--------+--------+ Right ECA 232cm/s -------- + +--------+--------+ Right ICA - proximal 157cm/s 42.6cm/s + +--------+--------+ Right ICA - mid 111cm/s 35.6cm/s + +--------+--------+ Right ICA - distal 138cm/s 58cm/s + +--------+--------+ Right vertebral 173cm/s -------- + +--------+--------+ Left CCA - proximal 16.3cm/s -------- + +--------+--------+ Left CCA - distal 15.4cm/s 0.3cm/s + +--------+--------+ Left ECA 116cm/s -------- + +--------+--------+ Velocity ratios: + + + + Right, V sys Right, V ed + + + + Max ICA/dist CCA 1.23 1.53 + + + + (Report amended ) Electronically signed by: Ángel Caballero [id number]
== END ==
PROVIDERS: PCP Internal Medicine Adolescent Medicine; Visit Provider Urology
DX: E78.5 Hyperlipidemia, unspecified (principal); I10 Essential (primary) hypertension; Z95.0 Presence of cardiac pacemaker; I65.23 Occlusion and stenosis of bilateral carotid arteries
CPT/HCPCS: 93880

== ENCOUNTER → 2018-10-06 07:30 | Outpatient (CLI) | payer MEDICARE, MEDICAID, SELFPAY ==
[2018-10-06 08:34] LABS: Basophils % 0.2 % (0.1-2.0); Eosinophils # 0.1 K/mm3 (0.0-0.4); Eosinophils % 1.1 % (0.1-12.0); Hemoglobin 9.8 g/dL (14.1-18.0); Lymphocytes # 1.1 K/mm3 (0.7-4.5); Lymphocytes % 16.6 % (10-50); Mean Corpuscular HGB Conc 31.6 g/dL (31.8-35.4); Mean Corpuscular Volume 97.9 fl (80-94); Mean Platelet Volume 9.7 fl (7.4-10.4); Monocytes # 0.7 K/mm3 (0.1-1.0); Monocytes % 10.4 % (1.7-9.3); Neutrophils # 4.9 K/mm3 (1.8-7.8); Neutrophils % 71.7 % (37.0-80.0); Platelet Count 283 K/mm3 (142-424); Red Blood Count 3.17 M/mm3 (4.60-6.20); Red Cell Distribution Width 17.2 % (11.5-17.5); White Blood Count 6.8 K/mm3 (4.8-10.8)
[2018-10-06 10:35] LABS: Alanine Aminotransferase 20 U/L (12-78); Albumin Level 3.4 gm/dL (3.4-5.0); Albumin/Globulin Ratio 1.1 (1.1-1.8); Alkaline Phosphatase 114 U/L (46-116); Anion Gap 15.1 mEq/L (5-15); Aspartate Amino Transferase 21 U/L (15-37); Bilirubin,Total 0.4 mg/dL (0.2-1.0); Blood Urea Nitrogen 24 mg/dL (7-18); Calcium 8.3 mg/dL (8.5-10.1); Carbon Dioxide 27 mmol/L (21.0-32.0); Chloride 105 mmol/L (98-107); Chol/HDL Ratio 3.1 (1-3.5); Cholesterol 121 mg/dL (140-200); Creatinine,Serum 1.49 mg/dL (0.70-1.30); Estimated Glomerular Filt Rate 45 ml/min (>60); GFR (African American) 54 ML/MIN (>60); Globulin 3.1 gm/dl (1.3-3.2); Glucose 114 mg/dL (74-106); HDL Cholesterol 39 mg/dL (27-67); LDL Cholesterol 62 mg/dL (0-130); Potassium 4.1 mmoL/L (3.5-5.1); Sodium 143 mmol/L (136-145); Total Protein,Serum 6.5 gm/dL (6.4-8.2); Triglycerides 98 mg/dL (30-200); Uric Acid 6.1 mg/dL (2.6-7.2); VLDL Cholesterol 20 mg/dL (0-40)
== END ==
PROVIDERS: Visit Provider Internal Medicine Adolescent Medicine
DX: I50.22 Chronic systolic (congestive) heart failure (principal); N18.2 Chronic kidney disease, stage 2 (mild); E78.5 Hyperlipidemia, unspecified; M10.9 Gout, unspecified
CPT/HCPCS: 36415; 80053; 80061; 84550; 85025

== ENCOUNTER → 2019-09-22 12:23 | Outpatient (CLI) | payer MEDICARE, OTHER, SELFPAY ==
--- NOTE | 2019-09-22 12:27 | CA_ITS ---
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 Antegrade flow seenin the right verterbral artery, non-visualization of left. Diffcult exam r/t patient unable to turn head. 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 Antegrade flow seenin the right verterbral artery, non-visualization of left. Diffcult exam r/t patient unable to turn head. Electronically signed by : Ángel Caballero MD 09/24/2019 08:56:17
== END ==
PROVIDERS: PCP Internal Medicine Adolescent Medicine; Visit Provider Nurse Practitioner Family
DX: R94.31 Abnormal electrocardiogram [ECG] [EKG]; E78.49 Other hyperlipidemia; I65.21 Occlusion and stenosis of right carotid artery; N18.3 Chronic kidney disease, stage 3 (moderate); I67.2 Cerebral atherosclerosis; Z95.0 Presence of cardiac pacemaker; I12.9 Hypertensive chronic kidney disease with stage 1 through stage 4 chronic kidney disease, or unspecified chronic kidney disease
CPT/HCPCS: 93306; 93880

== ENCOUNTER → 2019-10-18 10:29 | Outpatient (CLI) | payer MEDICARE, OTHER, SELFPAY ==
[2019-10-18 10:54] LABS: Basophils % 0.2 % (0.1-2.0); Eosinophils # 0.1 K/mm3 (0.0-0.4); Hematocrit 29.9 % (42.0-52.0); Hemoglobin 10.1 g/dL (14.1-18.0); Lymphocytes # 1.1 K/mm3 (0.7-4.5); Lymphocytes % 20.4 % (10-50); Mean Corpuscular HGB Conc 33.6 g/dL (31.8-35.4); Mean Corpuscular Hemoglobin 32.5 pg (27.0-31.2); Mean Corpuscular Volume 96.6 fl (80-94); Mean Platelet Volume 9.6 fl (7.4-10.4); Monocytes # 0.5 K/mm3 (0.1-1.0); Monocytes % 9.7 % (1.7-9.3); Neutrophils # 3.8 K/mm3 (1.8-7.8); Neutrophils % 68.6 % (37.0-80.0); Platelet Count 347 K/mm3 (142-424); Red Cell Distribution Width 17.2 % (11.5-17.5); White Blood Count 5.5 K/mm3 (4.8-10.8)
[2019-10-18 11:31] LABS: Chloride 100 mmol/L (98-107); Sodium 140 mmol/L (136-145)
[2019-10-18 11:34] LABS: Alanine Aminotransferase 14 U/L (12-78); Albumin Level 3.8 g/dl (3.5-5.0); Albumin/Globulin Ratio 1.4 (1.1-1.8); Alkaline Phosphatase 109 U/L (38-126); Aspartate Amino Transferase 29 U/L (17-59); Bilirubin,Total 0.7 mg/dl (0.2-1.3); Blood Urea Nitrogen 18 mg/dl (9-20); Carbon Dioxide 29 mmol/L (22.0-30.0); Estimated Glomerular Filt Rate 58 ml/min (>60); GFR (African American) 70 ML/MIN (>60); Globulin 2.7 g/dL (1.3-3.2); Total Protein,Serum 6.5 g/dl (6.3-8.2)
[2019-10-18 11:35] LABS: Calcium 8.7 mg/dl (8.4-10.2); Glucose 127 mg/dl (74-100)
[2019-10-18 12:04] LABS: Thyroid Stimulating Hormone 0.68 uIU/mL (0.465-4.68)
== END ==
PROVIDERS: Visit Provider Internal Medicine Adolescent Medicine
DX: I10 Essential (primary) hypertension (principal); E03.9 Hypothyroidism, unspecified
CPT/HCPCS: 36415; 80053; 84443; 85025

== ENCOUNTER 2020-01-05 14:18 | Emergency (ER) | payer MEDICARE, MEDICAID, SELFPAY ==
[2020-01-05 14:21] VITALS: BP 153/54; PULSE 70; RESP 15; TEMP 37.2; O2SAT 100; BMI 25.0
--- NOTE | 2020-01-05 14:26 | HMH.EDGENADL ---
ED Disposition Clinical Impression: Left-sided chest wall pain Contusion of left chest wall Qualifiers: Encounter type: initial encounter Qualified Code(s): S20.212A - Contusion of left front wall of thorax, initial encounter Disposition: Home, Self-Care Condition on Discharge: Good Instructions: How to Prevent Falls Additional Instructions: Follow-up with your PCP. If you have any new, changing, worsening, or concerning symptoms, come back to the emergency department. Referrals: Jonathan Fitzpatrick MD [Primary Care Provider] - Time of Disposition: 14:35 - Critical Care Critical Care Time: No Attestation: On , the high probability of a clinically significant, sudden or life threatening deterioration of the following system(s) required my full and direct attention, intervention and personal management. The time I documented below is in addition to time spent performing reported procedures but includes the following listed in this critical care notation. Medical Decision Making - Medical Records Medical records reviewed: Yes: I reviewed the patient's medical records. MR Comment: 84-year-old male presents emergency department with left-sided chest wall pain after a fall last night. He denies any pain at all when sitting or standing, but states that the movement of trying to sit up or going to sit down makes the pain worse. On exam, he has some posterior chest wall bruising on the left. Did not strike his head in the fall, no LOC. Has been ambulating on his cane as usual without any hip or lower extremity pain. I doubt any other serious injury. This was a mechanical fall. Will get a chest x-ray and rib view on the left and reassess. He denies need for pain medication at this time. On reassessment, patient remains well. Continues to deny any pain at rest, not tachypneic and breathing comfortably. Did not see any acute rib fractures on chest x-ray. Advise he follow-up with his PCP in the next couple of days and was given strict return precautions. He denies any other complaints or concerns. He verbalized understanding and agreement with the plan. Safe to discharge. - Devin Inquiry Pt receiving controlled substance: No Vital Signs: 01/05/20 14:21 Temperature 98.9 F Temperature Source Oral Pulse Rate [Right Radial] 70 Respiratory Rate 15 Blood Pressure [Right Arm] 153/54 H Blood Pressure Mean [Right Arm] 87 02 Sat by Pulse Oximetry 100 Oxygen Delivery Method Room Air General Adult HPI - General Stated complaint: AO fall 01/04/20 lt side pain Time Seen by Provider: 01/05/20 14:26 - History of Present Illness HPI narrative: 84yo M with hx of CKD, HLD, HTN, pacemaker, presents to the ED with left chest pain after falling at home yesterday. He slipped on a slick floor and fell, complains of left chest pain where he hit it. No head injury, did not strike head, no LOC. No back pain or neck pain. No leg pain or trouble walking. He states that when he is sitting still or walking he has no pain, but when he goes from sitting to standing or vice versa, he has pain. He denies any shortness of breath or trouble breathing. He denies any other complaints or concerns at this time. - Related Data Home Medications Medication Instructions Recorded Confirmed allopurinol 100 mg tablet 100 mg PO DAILY 07/31/17 03/24/19 atenolol 25 mg tablet 25 mg PO DAILY 07/31/17 03/24/19 clopidogrel 75 mg tablet 75 mg PO DAILY 07/31/17 03/24/19 doxazosin 4 mg tablet 4 mg PO DAILY 07/31/17 03/24/19 famotidine 20 mg tablet 20 mg PO QHS 07/31/17 03/24/19 furosemide 40 mg tablet 40 mg PO DAILY 07/31/17 03/24/19 gabapentin 100 mg capsule 100 mg PO QHS 07/31/17 03/24/19 levothyroxine 50 mcg capsule 50 mcg PO DAILY 07/31/17 03/24/19 potassium chloride 10 mEq 10 meq PO BID 07/31/17 03/24/19 capsule,extended release pravastatin 40 mg tablet 40 mg PO QHS 07/31/17 03/24/19 Previous Rx's Medication Instructions Recorded Fluticas
--- NOTE | 2020-01-05 14:33 | XR_ITS ---
PROCEDURE: XR RIBS LT MIN 3V W CXR1V CLINICAL INDICATION: fall Posttraumatic pain COMPARISON: CR CXR CHEST(2 VIEWS-NOT PORTABLE) from 01/31/2015 CR CXR CHEST(2 VIEWS-NOT PORTABLE) from 04/24/2016 CR CXR CHEST(2 VIEWS-NOT PORTABLE) from 05/08/2016 FINDINGS: There is a bipolar pacemaker from left subclavian approach. There is mild cardiomegaly without failure. Atelectatic changes are present in the left lung base. There are trace bilateral effusions. 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 Multiple views of the left ribs show no acute displaced fracture. There is some minimal pleural thickening along the left lateral hemithorax not significantly changed. IMPRESSION: Cardiomegaly with trace bilateral effusions. No displaced fracture apparent Dictated by: Ángel Caballero MD 01/05/2020 15:00 Ángel Caballero MD in [facility] 01/05/2020 15:00
[2020-01-05 15:24] VITALS: BP 145/59; PULSE 68; RESP 15; TEMP 37.2; O2SAT 99
== END 2020-01-05 15:25 | disposition home or self-care (01) ==
PROVIDERS: Emergency Provider Emergency Medicine; PCP Internal Medicine Adolescent Medicine
DX: S20.212A Contusion of left front wall of thorax, initial encounter (principal); W01.0XXA Fall on same level from slipping, tripping and stumbling without subsequent striking against object, initial encounter; Y92.019 Unspecified place in single-family (private) house as the place of occurrence of the external cause; E78.5 Hyperlipidemia, unspecified; I10 Essential (primary) hypertension; K21.9 Gastro-esophageal reflux disease without esophagitis; E03.9 Hypothyroidism, unspecified; Z95.0 Presence of cardiac pacemaker; Z88.7 Allergy status to serum and vaccine
CPT/HCPCS: 71101; 99282

== ENCOUNTER → 2020-02-02 08:35 | Outpatient (CLI) | payer MEDICARE, MEDICAID, SELFPAY ==
[2020-02-02 09:41] LABS: Basophils % 0.4 % (0.1-2.0); Eosinophils % 0.6 % (0.1-12.0); Hematocrit 32.6 % (42.0-52.0); Hemoglobin 10.5 g/dL (14.1-18.0); Lymphocytes % 19.8 % (10-50); Mean Corpuscular HGB Conc 32.2 g/dL (31.8-35.4); Mean Corpuscular Hemoglobin 31.7 pg (27.0-31.2); Mean Corpuscular Volume 98.3 fl (80-94); Mean Platelet Volume 10.2 fl (7.4-10.4); Monocytes # 0.4 K/mm3 (0.1-1.0); Monocytes % 7.5 % (1.7-9.3); Neutrophils # 3.7 K/mm3 (1.8-7.8); Neutrophils % 71.7 % (37.0-80.0); Platelet Count 292 K/mm3 (142-424); Red Blood Count 3.31 M/mm3 (4.60-6.20); Red Cell Distribution Width 17.3 % (11.5-17.5); White Blood Count 5.1 K/mm3 (4.8-10.8)
[2020-02-02 09:50] LABS: Chloride 99 mmol/L (98-107); Potassium 3.9 mmoL/L (3.5-5.1); Sodium 140 mmol/L (136-145)
[2020-02-02 09:52] LABS: Blood Urea Nitrogen 17 mg/dl (9-20); Estimated Glomerular Filt Rate 58 ml/min (>60); GFR (African American) 70 ML/MIN (>60)
[2020-02-02 09:53] LABS: Alanine Aminotransferase 20 U/L (12-78); Albumin Level 4.1 g/dl (3.5-5.0); Albumin/Globulin Ratio 1.6 (1.1-1.8); Alkaline Phosphatase 123 U/L (38-126); Anion Gap 10.9 mEq/L (5-15); Aspartate Amino Transferase 33 U/L (17-59); Bilirubin,Total 0.6 mg/dl (0.2-1.3); Carbon Dioxide 34 mmol/L (22.0-30.0); Cholesterol 112 mg/dl (140-200); Globulin 2.5 g/dL (1.3-3.2); Total Protein,Serum 6.6 g/dl (6.3-8.2); Triglycerides 144 mg/dl (30-150); VLDL Cholesterol 29 mg/dL (0-40)
[2020-02-02 09:54] LABS: Calcium 8.9 mg/dl (8.4-10.2); Chol/HDL Ratio 2.6 (1-3.5); Glucose 117 mg/dl (74-100); HDL Cholesterol 43 mg/dl (40-60)
[2020-02-02 10:23] LABS: Uric Acid 5.4 mg/dl (3.5-8.5)
[2020-02-02 10:47] LABS: Thyroid Stimulating Hormone 0.92 uIU/mL (0.465-4.68)
[2020-02-02 14:03] LABS: Direct LDL Cholesterol 44.41 mg/dL (100-129)
== END ==
PROVIDERS: Visit Provider Nurse Practitioner Family
DX: D64.9 Anemia, unspecified (principal); E78.5 Hyperlipidemia, unspecified; E03.9 Hypothyroidism, unspecified; I10 Essential (primary) hypertension; M10.9 Gout, unspecified
CPT/HCPCS: 36415; 80053; 80061; 84443; 84550; 85025

== ENCOUNTER → 2020-03-24 07:48 | Outpatient (CLI) | payer MEDICARE, MEDICAID, SELFPAY ==
--- NOTE | 2020-03-24 07:49 | CA_ITS ---
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 Study suggests probable total occlusion of the left common cartoid, internal cartoid and external cartoid artery unchanged from the 09/22/19 study. Antegrade flow seen in the right verterbral artery, non-visualization of the left. Diffcult study pt is unable to lay flat and turn his head. 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 Study suggests probable total occlusion of the left common cartoid, internal cartoid and external cartoid artery unchanged from the 09/22/19 study. Antegrade flow seen in the right verterbral artery, non-visualization of the left. Diffcult study pt is unable to lay flat and turn his head. Electronically signed by : Ángel Caballero MD 03/24/2020 16:14:08
== END ==
PROVIDERS: PCP Internal Medicine Adolescent Medicine; Visit Provider Nurse Practitioner Family
DX: I65.23 Occlusion and stenosis of bilateral carotid arteries (principal); I67.2 Cerebral atherosclerosis
CPT/HCPCS: 93880

== ENCOUNTER → 2020-05-03 09:32 | Outpatient (CLI) | payer MEDICARE, OTHER, SELFPAY ==
--- NOTE | 2020-05-03 09:38 | XR_ITS ---
PROCEDURE: XR FOOT WT BEARING LT 3V CLINICAL INDICATION: foot pain COMPARISON: CR [id number] XR foot RT min 3V from 06/13/2017 FINDINGS: No fracture or dislocation. No lytic or blastic change. There is normal mineralization. The joint spaces are well-preserved. No significant degenerative/arthritic changes. No erosive changes evident. Other findings:Hammertoe deformity 2nd 3rd 4th and 5th toes IMPRESSION: Hammertoe deformity otherwise negative Dictated by: Ángel Caballero MD 05/03/2020 16:43 Ángel Caballero MD in [facility] 05/03/2020 16:43
[2020-05-03 10:54] LABS: Basophils % 0.4 % (0.1-2.0); Eosinophils # 0.1 K/mm3 (0.0-0.4); Hemoglobin 9.8 g/dL (14.1-18.0); Lymphocytes # 1.1 K/mm3 (0.7-4.5); Mean Corpuscular HGB Conc 31.6 g/dL (31.8-35.4); Mean Corpuscular Hemoglobin 30.7 pg (27.0-31.2); Mean Corpuscular Volume 97.2 fl (80-94); Mean Platelet Volume 10.1 fl (7.4-10.4); Monocytes # 0.5 K/mm3 (0.1-1.0); Monocytes % 8.9 % (1.7-9.3); Neutrophils # 4.4 K/mm3 (1.8-7.8); Neutrophils % 71.6 % (37.0-80.0); Platelet Count 248 K/mm3 (142-424); Red Blood Count 3.19 M/mm3 (4.60-6.20); Red Cell Distribution Width 17.1 % (11.5-17.5); White Blood Count 6.1 K/mm3 (4.8-10.8)
[2020-05-03 11:17] LABS: Alanine Aminotransferase 13 U/L (12-78); Albumin Level 4.2 g/dl (3.5-5.0); Albumin/Globulin Ratio 1.5 (1.1-1.8); Alkaline Phosphatase 108 U/L (38-126); Anion Gap 13.3 mEq/L (5-15); Aspartate Amino Transferase 28 U/L (17-59); Bilirubin,Total 0.5 mg/dl (0.2-1.3); Blood Urea Nitrogen 23 mg/dl (9-20); Calcium 9.1 mg/dl (8.4-10.2); Carbon Dioxide 33 mmol/L (22.0-30.0); Chloride 98 mmol/L (98-107); Estimated Glomerular Filt Rate 44 ml/min (>60); GFR (African American) 54 ML/MIN (>60); Globulin 2.8 g/dL (1.3-3.2); Glucose 132 mg/dl (74-100); Potassium 4.3 mmoL/L (3.5-5.1); Sodium 140 mmol/L (136-145)
[2020-05-03 11:22] LABS: C-Reactive Protein 20.9 mg/L (0-4)
[2020-05-03 12:17] LABS: Erythrocyte Sedimentation Rate > 140 mm/hr (0-20)
== END ==
PROVIDERS: PCP Internal Medicine Adolescent Medicine; Visit Provider Nurse Practitioner
DX: Z51.89 Encounter for other specified aftercare (principal); S70.01XA Contusion of right hip, initial encounter; M79.672 Pain in left foot
CPT/HCPCS: 36415; 73630; 80053; 85025; 85651; 86140; 87070; 87077; 87186; 87205

== ENCOUNTER → 2020-05-15 07:46 | Outpatient (CLI) | payer MEDICARE, MEDICAID, SELFPAY ==
--- NOTE | 2020-05-15 08:02 | US_ITS ---
APPROVED REPORT Exam Type: Lower Extremity Segmental Pressures Billet Examiner: Naida Lucero RVT Indications Claudication: Bilaterally Rest Pain: Bilaterally SKIN ULCER LT 2ND TOE Pressures/Indices Right Indices Left Indices Brachial 150.00 mmHg Brachial 136.00 mmHg Low Thigh 186.00 mmHg 1.24 Low Thigh 176.00 mmHg 1.17 Calf 255.00 mmHg 0.00 Calf 255.00 mmHg 0.00 Ankle(PT) 255.00 mmHg 0.00 Ankle(PT) 131.00 mmHg 0.87 Ankle(DP) 155.00 mmHg 1.03 Ankle(DP) 173.00 mmHg 1.15 Digit 100.00 mmHg 0.67 Digit 101.00 mmHg 0.67 Findings RT KUMAR:103 AT THE DP, PT IS N/C LT KUMAR:1.15 RT TBI:0.67 LT TBI:0.67 NORMAL PULSES BILATERAL DAMPENED WAVEFORMS AT ALL LEVELS Conclusion RT KUMAR:103 AT THE DP, PT IS N/C LT KUMAR:1.15 RT TBI:0.67 LT TBI:0.67 NORMAL PULSES BILATERAL DAMPENED WAVEFORMS AT ALL LEVELS Normal KUMAR bilateral Non -compressible right DP Electronically signed by : Ángel Caballero MD 05/15/2020 16:16:33
== END ==
PROVIDERS: PCP Internal Medicine Adolescent Medicine; Visit Provider Podiatrist
DX: R09.89 Other specified symptoms and signs involving the circulatory and respiratory systems (principal)
CPT/HCPCS: 93923

== ENCOUNTER → 2020-05-29 09:39 | Outpatient (CLI) | payer MEDICARE, MEDICAID, SELFPAY ==
[2020-05-29 10:25] LABS: Basophils % 0.2 % (0.1-2.0); Eosinophils # 0.1 K/mm3 (0.0-0.4); Eosinophils % 1.1 % (0.1-12.0); Hematocrit 30.7 % (42.0-52.0); Hemoglobin 9.8 g/dL (14.1-18.0); Lymphocytes # 1.1 K/mm3 (0.7-4.5); Lymphocytes % 16.7 % (10-50); Mean Corpuscular Hemoglobin 31.1 pg (27.0-31.2); Mean Corpuscular Volume 97.1 fl (80-94); Mean Platelet Volume 9.7 fl (7.4-10.4); Monocytes # 0.6 K/mm3 (0.1-1.0); Monocytes % 8.7 % (1.7-9.3); Neutrophils # 4.8 K/mm3 (1.8-7.8); Neutrophils % 73.3 % (37.0-80.0); Platelet Count 302 K/mm3 (142-424); Red Blood Count 3.16 M/mm3 (4.60-6.20); White Blood Count 6.5 K/mm3 (4.8-10.8)
[2020-05-29 10:44] LABS: Chloride 103 mmol/L (98-107); Potassium 4.5 mmoL/L (3.5-5.1); Sodium 141 mmol/L (136-145)
[2020-05-29 10:47] LABS: Anion Gap 11.5 mEq/L (5-15); Blood Urea Nitrogen 23 mg/dl (9-20); Carbon Dioxide 31 mmol/L (22.0-30.0); Estimated Glomerular Filt Rate 48 ml/min (>60); GFR (African American) 58 ML/MIN (>60)
[2020-05-29 10:48] LABS: Calcium 9.1 mg/dl (8.4-10.2); Glucose 129 mg/dl (74-100)
[2020-05-29 11:02] LABS: Coronavirus 19 IgG Antibody Negative (Negative); Coronavirus 19 IgM Antibody Negative (Negative)
== END ==
PROVIDERS: Visit Provider Urology
DX: E78.5 Hyperlipidemia, unspecified (principal); I10 Essential (primary) hypertension; I67.2 Cerebral atherosclerosis; L97.529 Non-pressure chronic ulcer of other part of left foot with unspecified severity; R68.89 Other general symptoms and signs; Z95.0 Presence of cardiac pacemaker; Z01.818 Encounter for other preprocedural examination; Z20.822 Contact with and (suspected) exposure to COVID-19
CPT/HCPCS: 36415; 80048; 85025; 86328

== ENCOUNTER 2020-05-31 08:21 | Day surgery (SDC) | payer MEDICARE, MEDICAID, SELFPAY ==
[2020-05-31] VITALS (7 sets, daily range): BP systolic 131–149; BP diastolic 55–67; PULSE 69–80; RESP 13–20; TEMP 36.6; O2SAT 95–99; BMI 24.3
--- NOTE | 2020-05-31 07:08 | IR_ITS ---
APPROVED REPORT Patient Location: Outpatient Fire Prevention Engineer: GIOVANNY Sanches RT (R) PROCEDURES Right femoral arterial access Catheter placement left common iliac artery with left common iliac artery antegrade angiogram Catheter placed in the left superficial femoral artery Left superficial femoral artery antegrade angiogram with unilateral runoff to the left foot Catheter placed on the left external iliac artery with left external iliofemoral angiography INDICATION Boyers claudication class V, Peripheral artery disease, Poorly healing lower extremity ulcer on the left foot Informed consent was obtained prior to the procedure. COMPLICATIONS None Estimated Blood Loss: Less than 10 mls TECHNIQUE 1% lidocaine used anesthetize right groin the right coronary is accessed via the Salinger technique and a 5 Arabic sheath was placed in the right femoral artery. A rim catheter was placed in the left common iliac artery and left common iliac artery angiography was performed. The wire was then advanced into the left superficial femoral artery and the catheter was advanced. Antegrade angiography of the left superficial femoral artery with unilateral runoff to the left foot was performed. Following this the catheter was pulled back to the left external iliac artery and left external iliac artery and femoral angiography was performed. At the end of the procedure the apparatus was removed the groin was reprepped closure changed sheath was removed good hemostasis was achieved using Perclose device patient transferred the postop holding in stable addition ANGIOGRAPHIC RESULTS The left common internal and external iliac arteries are widely patent The left common femoral artery is widely patent and normal The left profunda femoris artery is normal The left superficial femoral artery and left popliteal artery are widely patent with mild nonflow limiting plaque The left anterior tibialis artery is widely patent and supplies the left foot The left posterior tibialis artery and left peroneal artery are both ostially proximally occluded atretic with no reconstitution distally. 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 Medical management for PAD 2. Surgical debridement as needed per Dr. Muñiz 3. Xarelto 2.5 twice daily plus aspirin 81 mg daily for PAD Electronically signed by : Timbo Matamoros, 05/31/2020 15:11:53
== END 2020-05-31 13:34 | disposition home or self-care (01) ==
LOC: CATHLAB 08:22
PROVIDERS: PCP Internal Medicine Adolescent Medicine; Visit Provider Internal Medicine
DX: I70.213 Atherosclerosis of native arteries of extremities with intermittent claudication, bilateral legs (principal); I70.245 Atherosclerosis of native arteries of left leg with ulceration of other part of foot; I77.1 Stricture of artery; L97.521 Non-pressure chronic ulcer of other part of left foot limited to breakdown of skin; I67.2 Cerebral atherosclerosis; I65.23 Occlusion and stenosis of bilateral carotid arteries; Z95.0 Presence of cardiac pacemaker; I12.9 Hypertensive chronic kidney disease with stage 1 through stage 4 chronic kidney disease, or unspecified chronic kidney disease; N18.30 Chronic kidney disease, stage 3 unspecified; I70.92 Chronic total occlusion of artery of the extremities; Z79.899 Other long term (current) drug therapy; Z88.0 Allergy status to penicillin; Z88.7 Allergy status to serum and vaccine
CPT/HCPCS: 36246; 36248; 75710; 99152; C1725; C1760; C1769; C1894; J1644; Q9966

== ENCOUNTER → 2020-06-12 09:19 | Outpatient (CLI) | payer MEDICARE, MEDICAID, SELFPAY ==
[2020-06-12 10:05] LABS: Basophils % 0.3 % (0.1-2.0); Eosinophils # 0.1 K/mm3 (0.0-0.4); Eosinophils % 2.6 % (0.1-12.0); Hematocrit 28.9 % (42.0-52.0); Hemoglobin 9.1 g/dL (14.1-18.0); Lymphocytes # 0.9 K/mm3 (0.7-4.5); Lymphocytes % 18.6 % (10-50); Mean Corpuscular HGB Conc 31.5 g/dL (31.8-35.4); Mean Corpuscular Hemoglobin 30.5 pg (27.0-31.2); Mean Corpuscular Volume 96.8 fl (80-94); Mean Platelet Volume 9.7 fl (7.4-10.4); Monocytes # 0.5 K/mm3 (0.1-1.0); Monocytes % 10.4 % (1.7-9.3); Neutrophils # 3.4 K/mm3 (1.8-7.8); Neutrophils % 68.2 % (37.0-80.0); Platelet Count 304 K/mm3 (142-424); Red Blood Count 2.99 M/mm3 (4.60-6.20); Red Cell Distribution Width 17.5 % (11.5-17.5)
[2020-06-12 10:27] LABS: Chloride 104 mmol/L (98-107); Sodium 140 mmol/L (136-145)
[2020-06-12 10:28] LABS: Potassium 4.7 mmoL/L (3.5-5.1)
[2020-06-12 10:30] LABS: Alanine Aminotransferase 12 U/L (12-78); Alkaline Phosphatase 110 U/L (38-126); Aspartate Amino Transferase 27 U/L (17-59); Bilirubin,Total 0.5 mg/dl (0.2-1.3); Blood Urea Nitrogen 39 mg/dl (9-20); Estimated Glomerular Filt Rate 38 ml/min (>60); GFR (African American) 46 ML/MIN (>60)
[2020-06-12 10:31] LABS: Albumin Level 3.9 g/dl (3.5-5.0); Albumin/Globulin Ratio 1.7 (1.1-1.8); Anion Gap 10.7 mEq/L (5-15); Carbon Dioxide 30 mmol/L (22.0-30.0); Globulin 2.3 g/dL (1.3-3.2); Glucose 116 mg/dl (74-100); Total Protein,Serum 6.2 g/dl (6.3-8.2)
[2020-06-12 10:37] LABS: C-Reactive Protein 3.2 mg/L (0-4)
[2020-06-12 11:13] LABS: Erythrocyte Sedimentation Rate > 140 mm/hr (0-20)
== END ==
PROVIDERS: Visit Provider Nurse Practitioner
DX: Z51.89 Encounter for other specified aftercare (principal); S70.01XA Contusion of right hip, initial encounter
CPT/HCPCS: 80053; 85025; 85651; 86140

== ENCOUNTER → 2020-06-20 11:50 | Outpatient (CLI) | payer MEDICARE, MEDICAID, SELFPAY ==
[2020-06-20 14:19] LABS: Alanine Aminotransferase 13 U/L (12-78); Albumin Level 3.9 g/dl (3.5-5.0); Albumin/Globulin Ratio 1.3 (1.1-1.8); Alkaline Phosphatase 99 U/L (38-126); Aspartate Amino Transferase 30 U/L (17-59); Bilirubin,Total 0.4 mg/dl (0.2-1.3); Blood Urea Nitrogen 49 mg/dl (9-20); Calcium 8.9 mg/dl (8.4-10.2); Carbon Dioxide 26 mmol/L (22.0-30.0); Chloride 103 mmol/L (98-107); Estimated Glomerular Filt Rate 34 ml/min (>60); GFR (African American) 41 ML/MIN (>60); Globulin 2.9 g/dL (1.3-3.2); Glucose 102 mg/dl (74-100); Sodium 139 mmol/L (136-145); Total Protein,Serum 6.8 g/dl (6.3-8.2)
[2020-06-20 14:55] LABS: Ferritin 432 ng/ml (17.9-464)
[2020-06-20 15:07] LABS: Basophils % 0.2 % (0.1-2.0); Eosinophils # 0.1 K/mm3 (0.0-0.4); Eosinophils % 1.7 % (0.1-12.0); Hematocrit 27.5 % (42.0-52.0); Lymphocytes # 1.1 K/mm3 (0.7-4.5); Lymphocytes % 18.5 % (10-50); Mean Corpuscular HGB Conc 32.8 g/dL (31.8-35.4); Mean Corpuscular Hemoglobin 30.9 pg (27.0-31.2); Mean Corpuscular Volume 94.1 fl (80-94); Mean Platelet Volume 10.1 fl (7.4-10.4); Monocytes # 0.6 K/mm3 (0.1-1.0); Monocytes % 10.5 % (1.7-9.3); Neutrophils % 69.1 % (37.0-80.0); Platelet Count 308 K/mm3 (142-424); Red Blood Count 2.92 M/mm3 (4.60-6.20); Red Cell Distribution Width 17.5 % (11.5-17.5); White Blood Count 5.8 K/mm3 (4.8-10.8)
[2020-06-20 17:28] LABS: Folate > 20.00 ng/mL; Vitamin B12 457 pg/mL (239-931)
== END ==
PROVIDERS: Visit Provider Internal Medicine Adolescent Medicine
DX: D53.9 Nutritional anemia, unspecified (principal)
CPT/HCPCS: 36415; 80053; 82607; 82728; 82746; 85025

== ENCOUNTER → 2020-07-25 09:05 | Outpatient (CLI) | payer MEDICARE, MEDICAID, SELFPAY ==
[2020-07-25 09:39] LABS: Basophils % 0.3 % (0.1-2.0); Eosinophils # 0.1 K/mm3 (0.0-0.4); Eosinophils % 2.6 % (0.1-12.0); Hematocrit 25.4 % (42.0-52.0); Hemoglobin 8.2 g/dL (14.1-18.0); Lymphocytes % 19.3 % (10-50); Mean Corpuscular HGB Conc 32.5 g/dL (31.8-35.4); Mean Corpuscular Hemoglobin 30.8 pg (27.0-31.2); Mean Corpuscular Volume 94.9 fl (80-94); Mean Platelet Volume 9.9 fl (7.4-10.4); Monocytes # 0.5 K/mm3 (0.1-1.0); Neutrophils # 3.6 K/mm3 (1.8-7.8); Neutrophils % 67.7 % (37.0-80.0); Platelet Count 293 K/mm3 (142-424); Red Blood Count 2.67 M/mm3 (4.60-6.20); Red Cell Distribution Width 17.5 % (11.5-17.5); White Blood Count 5.3 K/mm3 (4.8-10.8)
[2020-07-25 10:07] LABS: Chloride 108 mmol/L (98-107); Sodium 141 mmol/L (136-145)
[2020-07-25 10:08] LABS: Potassium 5.3 mmoL/L (3.5-5.1)
[2020-07-25 10:10] LABS: Alanine Aminotransferase 12 U/L (12-78); Albumin Level 4.1 g/dl (3.5-5.0); Albumin/Globulin Ratio 1.7 (1.1-1.8); Alkaline Phosphatase 96 U/L (38-126); Anion Gap 13.3 mEq/L (5-15); Aspartate Amino Transferase 25 U/L (17-59); Bilirubin,Total 0.4 mg/dl (0.2-1.3); Blood Urea Nitrogen 70 mg/dl (9-20); Carbon Dioxide 25 mmol/L (22.0-30.0); Estimated Glomerular Filt Rate 19 ml/min (>60); GFR (African American) 23 ML/MIN (>60); Globulin 2.4 g/dL (1.3-3.2); Total Protein,Serum 6.5 g/dl (6.3-8.2)
[2020-07-25 10:11] LABS: Glucose 118 mg/dl (74-100)
[2020-07-25 10:16] LABS: C-Reactive Protein 1.6 mg/L (0-4)
[2020-07-25 10:44] LABS: Erythrocyte Sedimentation Rate 9 mm/hr (0-20)
== END ==
PROVIDERS: Visit Provider Nurse Practitioner
DX: Z51.89 Encounter for other specified aftercare (principal); S70.01XA Contusion of right hip, initial encounter
CPT/HCPCS: 36415; 80053; 85025; 85651; 86140

== ENCOUNTER → 2020-09-25 07:26 | Outpatient (CLI) | payer MEDICARE, MEDICAID, SELFPAY ==
--- NOTE | 2020-09-25 07:27 | CA_ITS ---
APPROVED REPORT EXAM: Comprehensive 2D, Doppler, and color-flow Echocardiogram Bridal Gown Fitter: Naida Lucero RVT Ht: 5 ft 6 in Wt: 156lbs BSA: 1.80 BP: 115/51 mmHg Indications: MURMUR,PACER,THAD,CKD,HTN,HLD,GERD 2D Dimensions LVOT 2.24 cm (M/F) 1.5-2.5 M-Mode Dimensions RVDd 1.32 cm (0.9-2.6) LA Diam 4.05 cm (1.9-4.0) LVDd 5.29 cm (3.5-5.7) Ao Diam 3.34 cm (2.0-3.7) LVDs 3.79 cm (3.5-5.7) IVSd 1.18 cm (0.6-1.1) PWd 0.89 cm (0.6-1.1) EF (Teich) 54.30% FS 28.40% EDV (Teich) 134.80 mL TAPSE 2.34 (<1.7) ESV (Teich) 61.60 mL LV Diastology E Decel Time 150.00 (160-240 msec) E/A Ratio 0.7 MED E' 3.80 (< 7 cm/sec) E'/MED E' Ratio 21.92 (>14) LAT E' 4.50 (<10 cm/sec) E/LAT E' Ratio 18.51 (>14) Aortic Valve AO Peak GR. 3.60 mmHg Mitral Valve MV E Max Heriberto. 83.00 (40-130 cm/s) MV A Velocity 126.00 (40-130 cm/s) E/A Ratio 0.66 MV Decel. Time 150.00 (160-240 ms) MV PHT 44.00 ms Pulmonary Valve PV Peak Velocity 72.00 (50-150 cm/s) Tricuspid Valve TR P. Velocity 312.00 cm/s RAP Estimate 10.00 mmHg RVSP 48.80 mmHg Left Ventricle Left atrium is mildly enlarged, left ventricle is normal size, mild concentric left ventricular hypertrophy, visually estimated ejection fraction 50%, there is abnormal septal motion. Endocardial surfaces are poorly visualized, diastolic parameters are inconclusive. Right Ventricle Right atrium and right ventricle mildly enlarged with normal contractility, pacemaker leads in the right ventricle. Aortic Valve Aortic valve is thickened and calcified without Doppler evidence of aortic stenosis or aortic insufficiency. Mitral Valve Mitral valve grossly normal, there is mild mitral regurgitation. Tricuspid Valve Tricuspid grossly normal, there is mild tricuspid regurgitation, calculated right ventricular systolic pressure is 48 mmHg. Pulmonic Valve Pulmonic valve is poorly visualized. Great Vessels Aortic root is normal size. Pericardium No significant pericardial effusion noted. Conclusion 1. Mild biatrial enlargement, normal left ventricular size, mild concentric left ventricular hypertrophy, visually estimated ejection fraction 50%, there is abnormal septal motion, diastolic parameters are inconclusive. 2. Mildly enlarged right ventricle with normal contractility. 3. Thickened and calcified aortic valve without aortic stenosis or aortic insufficiency. 4. Mild mitral and tricuspid regurgitation, calculated right ventricular systolic pressure is 48 mmHg. 5. No significant pericardial effusion noted. Electronically signed by : Ludin Leon, 09/25/2020 22:18:57
== END ==
PROVIDERS: PCP Internal Medicine Adolescent Medicine; Visit Provider Nurse Practitioner Family
DX: R01.1 Cardiac murmur, unspecified (principal)
CPT/HCPCS: 93306

== ENCOUNTER 2020-12-12 12:09 | Emergency (ER) | payer MEDICARE, MEDICAID, SELFPAY ==
[2020-12-12 12:11] VITALS: BP 140/55; PULSE 75; RESP 18; TEMP 36.9; O2SAT 97; BMI 22.4
--- NOTE | 2020-12-12 12:28 | HMH.EDSOB ---
ED Disposition Clinical Impression: Bronchitis due to 2019 novel coronavirus Disposition: Home, Self-Care Condition on Discharge: Good Instructions: DI for COVID-19 (Suspected or Confirmed ) Additional Instructions: Your tests today did not show any dangerous conditions. Your kidney functions were a little bit elevated and you should follow-up with your primary care doctor in about 1 week to have them checked again. Otherwise, return to the emergency department if you feel worse in any way. Referrals: Jonathan Fitzpatrick MD [Primary Care Provider] - 7-14 days (mildly elevated creatinine (1.5)) - Critical Care Critical Care Time: No Attestation: On 12/12/20, the high probability of a clinically significant, sudden or life threatening deterioration of the following system(s) required my full and direct attention, intervention and personal management. The time I documented below is in addition to time spent performing reported procedures but includes the following listed in this critical care notation. Medical Decision Making - Medical Records Medical records reviewed: Yes: I reviewed the patient's medical records. - Devin Inquiry Pt receiving controlled substance: No Vital Signs: 12/12/20 12:11 12/12/20 13:00 Temperature 98.4 F Temperature Source Oral Pulse Rate 69 Pulse Rate [Right Radial] 75 Respiratory Rate 18 26 H Blood Pressure 126/47 L Blood Pressure [Right Arm] 140/55 L Blood Pressure Mean [Right Arm] 83 Blood Pressure Source [Right Arm] Automatic Cuff Blood Pressure Position [Right Arm] Sitting 02 Sat by Pulse Oximetry 97 97 Oxygen Delivery Method Room Air Room Air - Lab Data Lab Results 12/12/20 13:15: WBC 3.0 L, RBC 2.56 L, Hgb 8.1 L, Hct 24.3 L, MCV 94.9 H, MCH 31.7 H, MCHC 33.4, RDW 18.5 H, Plt Count 94 L, MPV 10.4, Neut % (Auto) 58.6, Lymph % (Auto) 36.8, [place] % (Auto) 3.1, Eos % (Auto) 0.8, Baso % (Auto) 0.7, Neut # (Auto) 1.7 L, Lymph # (Auto) 1.1, [place] # (Auto) 0.1, Eos # (Auto) 0.0, Baso # (Auto) 0.0 12/12/20 13:15: Sodium 134 L, Potassium 3.5, Chloride 99, Carbon Dioxide 26, Anion Gap 12.5, BUN 17, Creatinine 1.50 H, Estimated Creat Clear 37, Estimated GFR 44 L, Est GFR ( Amer) 54 L, Glucose 125 H, Calcium 8.4, Total Bilirubin 0.7, AST 51, ALT 22, Alkaline Phosphatase 99, Troponin I 0.01, NT-Pro-B Natriuret Pep 2720 H, Total Protein 6.8, Albumin 3.7, Globulin 3.1, Albumin/Globulin Ratio 1.2 Result diagrams: 12/12/20 13:15 12/12/20 13:15 Orders (Tests/Meds): ORDERS Category Date Time Status Troponin I Q3H Lab 12/12/20 15:45 Ordered Troponin I Q3H Lab 12/12/20 18:45 Ordered - Radiology Data #1 Image(s): Chest Image Reviewed: Yes I reviewed the patient's radiology image, Yes I have reviewed radiologist's interpretation Preliminary Findings: Normal/NAD Medical Decision Narrative: The patient's work-up in the emergency department today did not reveal any life-threatening or dangerous conditions. He has a history of Covid 19 infection. However, the patient's work-up does not reveal any admission criteria for this condition. His oxygen saturations are normal. His chest x-ray is unremarkable. His vital signs are also unremarkable. The patient does have a mild to moderate pancytopenia. However, this is not require admission to the hospital. This can be followed up as an outpatient. Resp/SOB HPI - General Chief Complaint: Shortness of Breath/Dyspnea Stated Complaint: covid positive, worsening symptoms Time Seen by Provider: 12/12/20 12:28 Mode of Arrival: Wheelchair Limitations: Suspected mild dementia Description of Symptoms (Recalled from ER Triage Doc. by RN): Pt covid positive and c/o worsening symptoms. Pt c/o increased sinus congestion/drainage and SOA - History of Present Illness The patient presents to the emergency department accompanied by his for worsening Covid symptoms. The patient's needs to be admitted to the hospital. Stephanie
--- NOTE | 2020-12-12 12:31 | XR_ITS ---
PROCEDURE: XR CHEST PORTABLE CLINICAL HISTORY: Dyspnea, COVID+ COMPARISON: CR CXR CHEST(2 VIEWS-NOT PORTABLE) from 04/24/2016 CR CXR CHEST(2 VIEWS-NOT PORTABLE) from 05/08/2016 CR XR RIBS LT MIN 3V W CXR1V from 01/05/2020 FINDINGS: Borderline cardiomegaly without failure. Bipolar pacemaker is present from left subclavian approach. There are low lung volumes. Vascular crowding is present in the right lung base. Minimal atelectatic or fibrotic changes noted in the left lung base. Upper lobes are clear. Severe degenerative changes of the right shoulder IMPRESSION: No definite acute finding. Dictated by: Ángel Caballero MD 12/12/2020 13:05 Ángel Caballero MD in [place] 12/12/2020 13:05
[2020-12-12 13:00] VITALS: BP 126/47; PULSE 69; RESP 26; O2SAT 97
[2020-12-12 13:26] LABS: Basophils % 0.7 % (0.1-2.0); Eosinophils % 0.8 % (0.1-12.0); Hematocrit 24.3 % (42.0-52.0); Hemoglobin 8.1 g/dL (14.1-18.0); Lymphocytes # 1.1 K/mm3 (0.7-4.5); Lymphocytes % 36.8 % (10-50); Mean Corpuscular HGB Conc 33.4 g/dL (31.8-35.4); Mean Corpuscular Hemoglobin 31.7 pg (27.0-31.2); Mean Corpuscular Volume 94.9 fl (80-94); Mean Platelet Volume 10.4 fl (7.4-10.4); Monocytes # 0.1 K/mm3 (0.1-1.0); Monocytes % 3.1 % (1.7-9.3); Neutrophils # 1.7 K/mm3 (1.8-7.8); Neutrophils % 58.6 % (37.0-80.0); Platelet Count 94 K/mm3 (142-424); Red Blood Count 2.56 M/mm3 (4.60-6.20); Red Cell Distribution Width 18.5 % (11.5-17.5)
[2020-12-12 13:34] LABS: Chloride 99 mmol/L (98-107); Sodium 134 mmol/L (136-145)
[2020-12-12 13:35] LABS: Potassium 3.5 mmoL/L (3.5-5.1)
[2020-12-12 13:37] LABS: Alanine Aminotransferase 22 U/L (12-78); Alkaline Phosphatase 99 U/L (38-126); Aspartate Amino Transferase 51 U/L (17-59); Bilirubin,Total 0.7 mg/dl (0.2-1.3); Blood Urea Nitrogen 17 mg/dl (9-20); Creatinine Clearance Estimated 37 mL/min (50-200); Estimated Glomerular Filt Rate 44 ml/min (>60); GFR (African American) 54 ML/MIN (>60)
[2020-12-12 13:38] LABS: Albumin Level 3.7 g/dl (3.5-5.0); Albumin/Globulin Ratio 1.2 (1.1-1.8); Anion Gap 12.5 mEq/L (5-15); Calcium 8.4 mg/dl (8.4-10.2); Carbon Dioxide 26 mmol/L (22.0-30.0); Globulin 3.1 g/dL (1.3-3.2); Glucose 125 mg/dl (74-100); Total Protein,Serum 6.8 g/dl (6.3-8.2)
[2020-12-12 13:47] LABS: NT Pro Brain Natriuretic Pep. 2720 pg/mL (0-450)
[2020-12-12 13:51] LABS: Troponin I 0.01 ng/ml (0.00-0.034)
--- NOTE | 2020-12-12 15:45 | PC.NURSE ---
DR SIMPSON SPOKE WITH DR LOPES HE DOES NOT WANT PT TO BE ADMITTED AT THIS TIME BUT DOES WANT INFUSION GIVEN PRIOR TO DISCHARGE
--- NOTE | 2020-12-12 16:00 | PC.NURSE ---
SPOKE WITH DAUGHTER SHE WAS UPSET AND WANTED PT ADMITTED SAID HE WAS TO WEAK TO GO HOME
--- NOTE | 2020-12-12 16:16 | PC.NURSE ---
INFUSION ORDER FAXED TO PHARMACY
--- NOTE | 2020-12-12 17:07 | PC.NURSE ---
COVID infusion started at this time after pt signed consent.
[2020-12-12 18:10] VITALS: BP 142/85; PULSE 88; RESP 21; TEMP 36.8; O2SAT 98
== END 2020-12-12 18:40 | disposition home or self-care (01) ==
PROVIDERS: Emergency Provider Emergency Medicine; PCP Internal Medicine Adolescent Medicine
DX: J20.9 Acute bronchitis, unspecified (principal); U07.1 COVID-19; K21.9 Gastro-esophageal reflux disease without esophagitis; E78.5 Hyperlipidemia, unspecified; E03.9 Hypothyroidism, unspecified; I10 Essential (primary) hypertension; Z95.0 Presence of cardiac pacemaker; Z79.899 Other long term (current) drug therapy
CPT/HCPCS: 71045; 80053; 83880; 84484; 85025; 96365; 99282

== ENCOUNTER 2021-01-31 14:00 | Inpatient (IN) | payer MEDICARE, MEDICAID, SELFPAY ==
[2021-01-31] VITALS (13 sets, daily range): BP systolic 94–196; BP diastolic 70–151; PULSE 70–90; RESP 17–32; TEMP 36.4–37.4; O2SAT 95–99; BMI 23.6; BMI 23.3
--- NOTE | 2021-01-31 14:19 | HMH.EDGENADL ---
ED Disposition Clinical Impression: Encephalopathy, NSTEMI (non-ST elevated myocardial infarction), Shock liver, Hospital acquired PNA Disposition: Admitted As Inpatient Condition on Discharge: Fair Referrals: Provider,Diego, [Primary Care Provider] - Time of Disposition: 17:18 - Critical Care Critical Care Time: No Attestation: On 01/31/21, the high probability of a clinically significant, sudden or life threatening deterioration of the following system(s) required my full and direct attention, intervention and personal management. The time I documented below is in addition to time spent performing reported procedures but includes the following listed in this critical care notation. Medical Decision Making - Medical Records Medical records reviewed: Yes: I reviewed the patient's medical records. - Devin Inquiry Pt receiving controlled substance: No Vital Signs: 01/31/21 14:07 01/31/21 15:03 01/31/21 15:30 Temperature 98.1 F Temperature Source Axillary Pulse Rate 77 71 Pulse Rate [Right Radial] 81 Respiratory Rate 20 24 24 Blood Pressure 189/77 H 193/105 H Blood Pressure [Right Arm] 178/97 H Blood Pressure Mean 134 134 Blood Pressure Mean [Right Arm] 124 Blood Pressure Source [Right Arm] Automatic Cuff Blood Pressure Position [Right Arm] Supine 02 Sat by Pulse Oximetry 99 98 98 Oxygen Delivery Method Nasal Cannula Oxygen Flow Rate (LPM) 2 01/31/21 16:00 01/31/21 16:30 Temperature Temperature Source Pulse Rate 77 70 Pulse Rate [Right Radial] Respiratory Rate 24 24 Blood Pressure 196/122 H 183/91 H Blood Pressure [Right Arm] Blood Pressure Mean 146 121 Blood Pressure Mean [Right Arm] Blood Pressure Source [Right Arm] Blood Pressure Position [Right Arm] 02 Sat by Pulse Oximetry 98 98 Oxygen Delivery Method Nasal Cannula Nasal Cannula Oxygen Flow Rate (LPM) 3 3 - Lab Data Lab results reviewed: Yes: I reviewed the patient's lab results. Lab Results 01/31/21 14:43: Specimen Source Right radial, O2 % 3 lpm, ABG pH 7.49 H, ABG pCO2 33.4 L, ABG pO2 99.4, ABG HCO3 24.9, ABG Total CO2 25.9, ABG O2 Saturation 97, ABG Base Excess 1.5, Ángel Test Patient unable 01/31/21 15:09: WBC 4.5 L, RBC 3.04 L, Hgb 8.7 L, Hct 26.9 L, MCV 88.5, MCH 28.7, MCHC 32.4, RDW 16.2, Plt Count 28 L*, MPV 11.4 H, Neut % (Auto) 73.8, Lymph % (Auto) 22.5, [place] % (Auto) 2.7, Eos % (Auto) 0.8, Baso % (Auto) 0.2, Neut # (Auto) 3.3, Lymph # (Auto) 1.0, [place] # (Auto) 0.1, Eos # (Auto) 0.0, Baso # (Auto) 0.0 01/31/21 15:09: Sodium 138, Potassium 4.3, Chloride 103, Carbon Dioxide 26, Anion Gap 13.3, BUN 40 H, Creatinine 1.10, Estimated Creat Clear 49, Estimated GFR 63, Est GFR ( Amer) 77, Glucose 214 H, Calcium 8.4, Total Bilirubin 0.5, AST 123 H, ALT 119 H, Alkaline Phosphatase 105, Troponin I 1.65 H, Total Protein 6.1 L, Albumin 3.2 L, Globulin 2.9, Albumin/Globulin Ratio 1.1 01/31/21 15:09: SARS-CoV-2 (PCR) Not detected, Influenza A Untype (PCR) Not detected, Influenza Type B (PCR) Not detected 01/31/21 15:09: Lactate 2.1 Result diagrams: 01/31/21 15:09 01/31/21 15:09 - ECG Data Tracing #1 I reviewed this ECG and interpreted as documented below: Sinus rhythm with first-degree AV block. Noted inverted T waves in V2, V3, V4, V5, V6. Some ST depression of V4, V5, V6. ECG initial impression date: 01/31/21 ECG initial impression time: 15:03 Medical Decision Narrative: 85yo M evaluated for decline in mental condition. Patient was sent home with hospice. Daughter is at bedside. Daughter is completely unaware of what hospice entails. She states that is not her goals of care for her father. He has a signed advanced directive from January 2021 stating he be permitted to naturally with only the administration of medication or medical treatment to alleviate pain. Daughter at bedside states that she knows her father and that he would want full care. On review of documentation from nicola Tello
--- NOTE | 2021-01-31 14:42 | XR_ITS ---
PROCEDURE: XR CHEST PORTABLE CLINICAL HISTORY: sob COMPARISON: CR CXR CHEST(2 VIEWS-NOT PORTABLE) from 05/08/2016 CR XR RIBS LT MIN 3V W CXR1V from 01/05/2020 CR XR CHEST PORTABLE from 12/12/2020 FINDINGS: Prominent diffuse bilateral ill-defined pneumonic infiltrates are seen primarily in the perihilar regions and right base. There is a small to moderate size right pleural effusion with some thickening of the minor fissure as well. There is no definite pulmonary congestion. There is mild generalized cardiomegaly and there is a left-sided cardiac pacemaker with dual chamber electrodes both in good position. IMPRESSION: Findings of acute bilateral airspace disease consistent with acute pneumonia Dictated by: Dr. Hola Hurtado MD 01/31/2021 15:36 Dr. Hola Hurtado MD in [facility] 01/31/2021 15:36
--- NOTE | 2021-01-31 14:43 | CT_ITS ---
PROCEDURE: CT HEAD/BRAIN WO CON CLINICAL INDICATION: ams COMPARISON: CT HDWO CT HEAD W/O CONTRAST from 03/31/2017 TECHNIQUE: Axial images obtained. All CT scans at the facility use one or more dose reduction, viz: automated exposure control, ma/kV adjustment per patient size (including targeted exams where dose is matched to indication, i.e. head), or iterative reconstruction technique. FINDINGS: No midline shift, mass effect, intracranial hemorrhage, hydrocephalus, or extra-axial fluid collection is evident. The basilar cisterns are prominent. The sylvian fissures and cortical sulci are markedly prominent. There are prominent atrophic changes of the cerebellar hemispheres. All these findings have shown interval progression when compared to the previous non-contrast CT brain 03/31/2017. There are mild periventricular hypodensities consistent with chronic ischemic white matter changes. There is motion artifact at the base of the skull the tracking from adequate evaluation but the mastoids appear to be grossly clear. The paranasal sinuses appear grossly clear. IMPRESSION: Findings of prominent cortical and cerebellar atrophy and iszy-fb-rmeypavg chronic ischemic periventricular white matter changes, no definite acute intracranial pathology noted Dictated by: Dr. Hola Hurtado MD 01/31/2021 15:41 Dr. Hola Hurtado MD in [facility] 01/31/2021 15:41
--- NOTE | 2021-01-31 14:45 | PC.NURSE ---
Daughter is at bedside currently ER MD discussed care and expectations at this time.
--- NOTE | 2021-01-31 15:02 | ECG_ITS ---
APPROVED REPORT Exam: Resting ECG HR:77 bpm ECG Measurements Heart Rate 77 AXES NE 224 P 67 QRSd 114 QRS 30 QT 480 T 195 QTc 543 Conclusion Sinus rhythm with 1st degree AV block Incomplete left bundle branch block ST & Marked T wave abnormality, consider anterolateral ischemia Prolonged QT Abnormal ECG Electronically signed by : Jonathan Fitzpatrick MD 02/02/2021 14:29:38
[2021-01-31 15:06] LABS: ABG Base Excess 1.5 mmol/L (-2.4-2.3); ABG HCO3 24.9 mmhg (22.0-26.0); ABG Oxygen Saturation 97 % (90-100); ABG PCO2 33.4 mmhg (35.0-45.0); ABG PH 7.49 mmol/L (7.35-7.45); ABG PO2 99.4 mmhg (80-100); ABG TCO2 25.9 mmhg (23-27)
[2021-01-31 15:09] LABS: Allen's Test Patient Unable; Oxygen 3 lpm %; Source Right Radial
--- NOTE | 2021-01-31 15:14 | PC.NURSE ---
rad at BS for portable chest xray
[2021-01-31 15:19] LABS: Coronavirus 19, PCR Not Detected (NotDetected); Influenza A, PCR Not Detected (NotDetected); Influenza B, PCR Not Detected (NotDetected)
--- NOTE | 2021-01-31 15:22 | PC.NURSE ---
Pt went to CT @ 2645
--- NOTE | 2021-01-31 15:31 | PC.NURSE ---
spoke with hospice staff on the phone at this time, states that hospice nurse will be coming to the hospital to see pt and speak with family. States they were on their way to admit pt to hospice service when family notified them that they were taking pt to the hospital. States they have spoken with pts daughter alisha who is POA, who states she is also on her way to hospital.
[2021-01-31 15:33] LABS: Basophils % 0.2 % (0.1-2.0); Eosinophils % 0.8 % (0.1-12.0); Hematocrit 26.9 % (42.0-52.0); Hemoglobin 8.7 g/dL (14.1-18.0); Lymphocytes % 22.5 % (10-50); Mean Corpuscular HGB Conc 32.4 g/dL (31.8-35.4); Mean Corpuscular Hemoglobin 28.7 pg (27.0-31.2); Mean Corpuscular Volume 88.5 fl (80-94); Mean Platelet Volume 11.4 fl (7.4-10.4); Monocytes # 0.1 K/mm3 (0.1-1.0); Monocytes % 2.7 % (1.7-9.3); Neutrophils # 3.3 K/mm3 (1.8-7.8); Neutrophils % 73.8 % (37.0-80.0); Red Blood Count 3.04 M/mm3 (4.60-6.20); Red Cell Distribution Width 16.2 % (11.5-17.5); White Blood Count 4.5 K/mm3 (4.8-10.8)
[2021-01-31 15:35] LABS: Alanine Aminotransferase 119 U/L (12-78); Albumin Level 3.2 g/dl (3.5-5.0); Albumin/Globulin Ratio 1.1 (1.1-1.8); Alkaline Phosphatase 105 U/L (38-126); Anion Gap 13.3 mEq/L (5-15); Aspartate Amino Transferase 123 U/L (17-59); Bilirubin,Total 0.5 mg/dl (0.2-1.3); Blood Urea Nitrogen 40 mg/dl (9-20); Calcium 8.4 mg/dl (8.4-10.2); Carbon Dioxide 26 mmol/L (22.0-30.0); Chloride 103 mmol/L (98-107); Creatinine Clearance Estimated 49 mL/min (50-200); Estimated Glomerular Filt Rate 63 ml/min (>60); GFR (African American) 77 ML/MIN (>60); Globulin 2.9 g/dL (1.3-3.2); Glucose 214 mg/dl (74-100); Potassium 4.3 mmoL/L (3.5-5.1); Sodium 138 mmol/L (136-145); Total Protein,Serum 6.1 g/dl (6.3-8.2)
[2021-01-31 15:37] LABS: Lactic Acid 2.1 mmol/L (0.7-2.1)
[2021-01-31 15:44] LABS: Platelet Count 28 K/mm3 (142-424)
[2021-01-31 15:49] LABS: Troponin I 1.65 ng/ml (0.00-0.034)
--- NOTE | 2021-01-31 16:50 | PC.NURSE ---
ARIADNE LEVNIE spoke with pt daughter amada who is pts POA. both daughters are at BS at this time. Amada states she wants to wait for hospice to get here to make decisions about pts POC.
--- NOTE | 2021-01-31 16:57 | PC.NURSE ---
Spoke with daughter Amada. She stated that she wants Pt to be treated and is with drawling from hospice. Told ARIADNE LEVINE.
--- NOTE | 2021-01-31 17:05 | PC.NURSE ---
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
--- NOTE | 2021-01-31 17:11 | PC.NURSE ---
Dr Major speaking with Dr Fitzpatrick
--- NOTE | 2021-01-31 17:11 | PC.NURSE ---
ARIADNE LEVINE speaking with Dr. Fitzpatrick
--- NOTE | 2021-01-31 17:17 | PC.NURSE ---
notified greenhouse or nursery transplanter of admission
--- NOTE | 2021-01-31 17:25 | PC.NURSE ---
Dr Major talking to Dr Matamoros.
--- NOTE | 2021-01-31 17:44 | PC.NURSE ---
Spoke with Reynaldo CHANCE at night watch for vanc dosing. He is placing the orders for it.
[2021-01-31 17:48] LABS: Microscopic, Urine URINE MICROSCOPIC (MICROSCOPIC)
[2021-01-31 17:51] LABS: Appearance,Urine CLEAR (Clear); Bilirubin,Urine Negative (Negative); Blood, Urine Negative (Negative); Color,Urine YELLOW (Yellow); Glucose,Urine (UA) Negative (Negative); Ketones,Urine Negative (Negative); Leukocyte Esterase,Urine Negative (Negative); Nitrate,Urine Negative (Negative); Protein,Urine Negative (Negative); Specific Gravity, Urine >= 1.030 (1.005-1.030); Urobilinogen,Urine 0.2 EU/dl (0.2)
[2021-01-31 18:02] LABS: WBC,Urine Occasional #/hpf (0-3)
[2021-01-31 19:19] LABS: Reflex Lactic Add Lactic Reflex
[2021-01-31 20:05] LABS: Lactic Acid Follow Up (RFLX 1) 1.9 mmol/L (0.7-2.1)
[2021-01-31 20:21] LABS: Troponin I 1.46 ng/ml (0.00-0.034)
--- NOTE | 2021-01-31 21:36 | PC.NURSE ---
CRITICAL TROPONIN REPORTED TO THIS NURSE. VERIFIED NAME, AND ROOM #. REPORTED TO MD ERICKSON. NNO AT THIS TIME.
[2021-02-01] VITALS: O2SAT 97
[2021-02-01 00:11] LABS: Troponin I 1.25 ng/ml (0.00-0.034)
--- NOTE | 2021-02-01 00:12 | PC.NURSE ---
NOTIFIED OF CRITICAL TROPONIN. VERIFIED NAME, AND ROOM #, REPORTED TO MYRA GOVEA.
--- NOTE | 2021-02-01 03:09 | PC.NURSE ---
PT HAS REMAINED CONFUSED T/O SHIFT, UNABLE TO ANSWER QUESTIONS OR FOLLOW COMMANDS WELL. PT TOLERATING 2LNC AT THIS TIME. PT HAS RECEIVED ABX AND FLUIDS. UNABLE TO SWALLOW NIGHT TIME MEDS. PT SEEMS TO REST AND BECOME LESS AGITATED AFTER ADMINISTRATION OF MORPHINE. CONDOM CATHETER IN PLACE PER DAY SHIFT. BED SAFETY AND MITTENS IN PLACE PER FAMILY'S OKAY. VSS WILL CONTINUE TO MONITOR.
[2021-02-01 04:00] VITALS: BP 129/71; PULSE 90; RESP 25; TEMP 37.2; O2SAT 94
[2021-02-01 04:59] VITALS: BMI 23.8
[2021-02-01 06:18] LABS: Chloride 107 mmol/L (98-107)
[2021-02-01 06:19] LABS: Potassium 4.6 mmoL/L (3.5-5.1); Sodium 140 mmol/L (136-145)
[2021-02-01 06:21] LABS: Alanine Aminotransferase 141 U/L (12-78); Alkaline Phosphatase 93 U/L (38-126); Anion Gap 14.6 mEq/L (5-15); Aspartate Amino Transferase 130 U/L (17-59); Bilirubin,Total 0.8 mg/dl (0.2-1.3); Blood Urea Nitrogen 45 mg/dl (9-20); Carbon Dioxide 23 mmol/L (22.0-30.0); Creatinine Clearance Estimated 46 mL/min (50-200); Estimated Glomerular Filt Rate 57 ml/min (>60); GFR (African American) 69 ML/MIN (>60)
[2021-02-01 06:22] LABS: Albumin Level 3.1 g/dl (3.5-5.0); Calcium 8.2 mg/dl (8.4-10.2); Glucose 177 mg/dl (74-100); Magnesium 2.7 mg/dl (1.6-2.3); Total Protein,Serum 6.1 g/dl (6.3-8.2)
--- NOTE | 2021-02-01 06:24 | PC.NURSE ---
Richard POWER NOTIFIED OF CONSULT
[2021-02-01 06:40] LABS: INR 1.11 (0.9-1.1); Prothrombin Time 12.4 seconds (10.1-12.5)
--- NOTE | 2021-02-01 07:04 | HMH.PHAVTE ---
[facility] Pharmacy VTE Monitoring - Patient Demographics Admission date: 01/31/21 Report Date: 02/01/21 Time: 07:04 Allergies/Adverse Reactions: Patient Allergies influenza virus vaccine, specific [INFLUENZA VIRUS VACC,SPECIFIC] Allergy (Unknown, Verified 01/31/21 18:14) Penicillins [PENICILLINS] Allergy (Unknown, Verified 01/31/21 18:14) I-RASH Height: 1.75 m Weight: 73.028 kg Patient Problems: Current Active Problems Encephalopathy (Acute) NSTEMI (non-ST elevated myocardial infarction) (Acute) Shock liver (Acute) Hospital acquired PNA (Acute) - VTE Risk Labs: VTE Related Lab Results Hgb 8.7 g/dL (14.1-18.0) L 01/31/21 15:09 Hct 26.9 % (42.0-52.0) L 01/31/21 15:09 Plt Count 28 K/mm3 (142-424) L* 01/31/21 15:09 BUN 45 mg/dl (9-20) H 02/01/21 05:35 Creatinine 1.20 mg/dl (0.66-1.25) 02/01/21 05:35 Estimated Creat Clear 46 mL/min (50-200) 02/01/21 05:35 - Prophylaxis VTE Prophylaxis Ordered?: Yes Types of VTE Prophylaxis: TEDS Knee High, Pharmacological Location of Applied Device: Bilateral Lower Extremeties Pharmacologic Type: Other (XARELTO)
--- NOTE | 2021-02-01 07:13 | HMH.PHAINT ---
MEDICATION RECONCILIATION COMPLETE USING SURESCRIPTS AND PREVIOUS OFFICE VISIT
[2021-02-01 07:19] LABS: Basophils % 0.2 % (0.1-2.0); Eosinophils # 0.1 K/mm3 (0.0-0.4); Eosinophils % 0.7 % (0.1-12.0); Hematocrit 27.5 % (42.0-52.0); Hemoglobin 8.7 g/dL (14.1-18.0); Lymphocytes # 1.3 K/mm3 (0.7-4.5); Lymphocytes % 19.8 % (10-50); Mean Corpuscular HGB Conc 31.8 g/dL (31.8-35.4); Mean Corpuscular Hemoglobin 28.6 pg (27.0-31.2); Mean Platelet Volume 12.1 fl (7.4-10.4); Monocytes # 0.3 K/mm3 (0.1-1.0); Neutrophils # 4.9 K/mm3 (1.8-7.8); Neutrophils % 75.2 % (37.0-80.0); Red Blood Count 3.05 M/mm3 (4.60-6.20); White Blood Count 6.5 K/mm3 (4.8-10.8)
--- NOTE | 2021-02-01 07:51 | HMH.HP ---
*Admission Date: 01/31/21 *Chief complaint: Unresponsive status *History of present illness: 85-year-old white male with recent convoluted medical history: He and his acquired COVID-19 pneumonia approximately 8 weeks ago. His who was afflicted with multiple comorbidities including morbid obesity, diabetes, CHF and unvaccinated status, in the intensive care unit here after several weeks of aggressive and maximized ventilator support care. Mr. Santana, who is also unvaccinated from Covid, acquired Covid and was treated in the emergency department here with oxygen therapy and ultimately his family took him to the [facility] in [place] where he was admitted for 3 or 4 days and treated for anemia and given oxygen support but was never ventilated. Patient also apparently spent some time in a rehab facility for muscular deconditioning and weakness. He returned home to [place] in the care of his daughters approximately 2 to 3 weeks ago when I saw him in my offices in [place] last week. He was with one of his daughters and was doing fairly well, ambulatory and on minimal oxygen. Apparently there was some significant family conflict and his daughter who brought him to the office had some extremely preservative and negative things to say about the other daughter regarding financial mismanagement and asset mismanagement and was extremely critical of her other sister and apparently there were some significant family dynamic problems. Approximately 4 days ago the patient became sick again and was taken to the [facility] where he was admitted for 3 days and treated for pneumonia. Yesterday morning he was discharged under hospice care because of worsening oxygen status and debility. And apparently the patient had signed papers to be comfort care and enrolled in hospice. He was home in [place] for just a few minutes and became somewhat unresponsive and the family brought him back to this emergency department where he was found to be in worsening respiratory distress. Elevated troponin levels, elevated LFTs levels, chest x-ray showing bilateral pneumonia and was admitted to hospital. There was some significant family conflict in the emergency department regarding who is actually the patient's healthcare surrogate/POA and is extremely confusing and there is a lot of uncertainty regarding communication. Mr. Santana is currently unable to communicate specifically about his wishes. Currently maintains a DNR status from family who was present in the ER. There is no family present today on rounds. Overnight the patient has been clinically stable. On nasal cannula oxygen. [facility] History I have reviewed the patient's past medical history: Yes Medical History: Reports:: Cancer (Skin), Gastroesophageal Reflux Disease(GERD), Hyperlipidemia, Hypertension, Internal Pacemaker, Myocardial Infarction Denies:: Diabetes Mellitus Type 1, Diabetes Mellitus Type 2, MRSA *Have you ever received a pneumonia vaccine?: No *Have you received a flu vaccine this season?: No Other Medical History: Reports: Arthritis, Hypothyroidism Laterality Cases: Right: Arthroscopy Hip, Total Hip Replacement Other Surgeries: Yes: No Previous Surgery, Cholecystectomy, Pacemaker Amputation: No Fractures: No - *Social History Smoking Status: Never smoker Alcohol Intake: never Alcohol Intake Frequency:: other Substance Use Type: denies use *Occupational Status:: retired *Travel in the last 8 weeks: None Family Hx:: No significant family history Review of Systems - Review of Systems Review of systems:: unable to obtain Meds Home Medications Medication Instructions Recorded Confirmed Type allopurinol 100 mg tablet 100 mg PO DAILY 07/31/17 01/31/21 History atenolol 25 mg tablet 25 mg PO BID 07/31/17 01/31/21 History doxazosin 4 mg tablet 2 mg PO DAILY 07/31/17 01/31/21 History gabapentin 100 mg capsule 100 mg PO TID 07/31/17 02/01/21 History levothyr
[2021-02-01 08:00] VITALS: BP 131/67; PULSE 70; PULSE 90; RESP 34; TEMP 36.6; O2SAT 95
--- NOTE | 2021-02-01 08:04 | HMH.CNCARD ---
History of Present Illness Consult date: 02/01/21 Requesting physician: Jonathan Fitzpatrick Consult reason: chest pain Chief complaint: NSTEMI Additional Medical History:: 1. PAD, on ASA and Xarelto A. LE runoff, 05/2020, left common internal and external arteries widely patent, left common femoral artery widely patent, left profunda femoris normal, left SFA and left popliteal widely patent with mild nonflow limiting plaque, left anterior tibialis artery is widely patent and supplies left foot, left posterior tibialis artery and left peroneal artery both ostially occluded proximally occluded atretic with no reconstitution distally. Recommendation for medical management. B. Carotid ultrasound, 09/2019, RAÚL 50-69%, LICA occluded with antegrade flow seen in the right vertebral, non-visualization of the left. 2. Permanent Pacemaker in situ 3. Hypertension A. Echo, 09/2020, 1. Mild biatrial enlargement, normal left ventricular size, mild concentric left ventricular hypertrophy, visually estimated ejection fraction 50%, there is abnormal septal motion, diastolic parameters are inconclusive. 2. Mildly enlarged right ventricle with normal contractility. 3. Thickened and calcified aortic valve without aortic stenosis or aortic insufficiency. 4. Mild mitral and tricuspid regurgitation, calculated right ventricular systolic pressure is 48 mmHg. 5. No significant pericardial effusion noted. Electronically signed by : Ludin Leon, 09/25/2020 22:18:57 4. Hyperlipidemia 5. GERD 6. Recent Covid infection, 12/2020 7. Pancytopenia (white count 4500, hemoglobin 8.7, platelet count 28,000), 02/01/2021 History of present illness: 85-year-old white male with recent convoluted medical history: He and his acquired COVID-19 pneumonia approximately 8 weeks ago. His who was afflicted with multiple comorbidities including morbid obesity, diabetes, CHF and unvaccinated status, in the intensive care unit here after several weeks of aggressive and maximized ventilator support care. Mr. Santana, who is also unvaccinated from Covid, acquired Covid and was treated in the emergency department here with oxygen therapy and ultimately his family took him to the [facility] in [place] where he was admitted for 3 or 4 days and treated for anemia and given oxygen support but was never ventilated. Patient also apparently spent some time in a rehab facility for muscular deconditioning and weakness. He returned home to [place] in the care of his daughters approximately 2 to 3 weeks ago when I saw him in my offices in [place] last week. He was with one of his daughters and was doing fairly well, ambulatory and on minimal oxygen. Apparently there was some significant family conflict and his daughter who brought him to the office had some extremely preservative and negative things to say about the other daughter regarding financial mismanagement and asset mismanagement and was extremely critical of her other sister and apparently there were some significant family dynamic problems. Approximately 4 days ago the patient became sick again and was taken to the [facility] where he was admitted for 3 days and treated for pneumonia. Yesterday morning he was discharged under hospice care because of worsening oxygen status and debility. And apparently the patient had signed papers to be comfort care and enrolled in hospice. He was home in [place] for just a few minutes and became somewhat unresponsive and the family brought him back to this emergency department where he was found to be in worsening respiratory distress. Elevated troponin levels, elevated LFTs levels, chest x-ray showing bilateral pneumonia and was admitted to hospital. There was some significant family conflict in the emergency department regarding who is actually the patient's healthcare surrogate/POA and is extremely confusing and there is a lot of uncertainty rega
--- NOTE | 2021-02-01 08:26 | HMH.PHACONS ---
- Pharmacy Consult Date: 02/01/21 Time: 08:26 Referring provider: DR. ERICKSON Reason for Consult:: VANCOMYCIN DOSING Allergies and ADEs:: Allergies Allergy/AdvReac Type Severity Reaction Status Date / Time influenza virus vaccine, Allergy Unknown Verified 01/31/21 18:14 specific [INFLUENZA VIRUS VACC,SPECIFIC] Penicillins [PENICILLINS] Allergy Unknown I-RASH Verified 01/31/21 18:14 Home Medications:: Home Medications Medication Instructions Recorded Confirmed Type allopurinol 100 mg tablet 100 mg PO DAILY 07/31/17 01/31/21 History atenolol 25 mg tablet 25 mg PO BID 07/31/17 01/31/21 History doxazosin 4 mg tablet 2 mg PO DAILY 07/31/17 01/31/21 History gabapentin 100 mg capsule 100 mg PO TID 07/31/17 02/01/21 History levothyroxine 50 mcg capsule 50 mcg PO DAILY 07/31/17 01/31/21 History potassium chloride 10 mEq 10 meq PO BID 07/31/17 01/31/21 History capsule,extended release pravastatin 40 mg tablet 40 mg PO HS 07/31/17 02/01/21 History omeprazole 40 mg capsule,delayed 40 mg PO DAILY cap 03/20/20 01/31/21 History release furosemide 40 mg tablet 40 mg PO BID tab 05/29/20 01/31/21 History Aspirin 81 mg PO DAILY 05/31/20 02/01/21 History trazodone 50 mg tablet 50 mg PO HS tab 01/25/21 02/01/21 History Rivaroxaban [Xarelto] 2.5 mg PO DAILY 01/31/21 01/31/21 History Famotidine [Acid Camera Technician] 20 mg PO HS 02/01/21 02/01/21 History Fluticasone Propionate 2 sprays NS DAILY 02/01/21 02/01/21 History Height: 1.75 m Weight: 73.028 kg Laboratory Results:: Laboratory Results - last 24 hr 01/31/21 14:43: Specimen Source Right radial, O2 % 3 lpm, ABG pH 7.49 H, ABG pCO2 33.4 L, ABG pO2 99.4, ABG HCO3 24.9, ABG Total CO2 25.9, ABG O2 Saturation 97, ABG Base Excess 1.5, Ángel Test Patient unable 01/31/21 15:09: WBC 4.5 L, RBC 3.04 L, Hgb 8.7 L, Hct 26.9 L, MCV 88.5, MCH 28.7, MCHC 32.4, RDW 16.2, Plt Count 28 L*, MPV 11.4 H, Neut % (Auto) 73.8, Lymph % (Auto) 22.5, [place] % (Auto) 2.7, Eos % (Auto) 0.8, Baso % (Auto) 0.2, Neut # (Auto) 3.3, Lymph # (Auto) 1.0, [place] # (Auto) 0.1, Eos # (Auto) 0.0, Baso # (Auto) 0.0 01/31/21 15:09: Sodium 138, Potassium 4.3, Chloride 103, Carbon Dioxide 26, Anion Gap 13.3, BUN 40 H, Creatinine 1.10, Estimated Creat Clear 49, Estimated GFR 63, Est GFR ( Amer) 77, Glucose 214 H, Calcium 8.4, Total Bilirubin 0.5, AST 123 H, ALT 119 H, Alkaline Phosphatase 105, Troponin I 1.65 H, Total Protein 6.1 L, Albumin 3.2 L, Globulin 2.9, Albumin/Globulin Ratio 1.1 01/31/21 15:09: SARS-CoV-2 (PCR) Not detected, Influenza A Untype (PCR) Not detected, Influenza Type B (PCR) Not detected 01/31/21 15:09: Lactate 2.1 01/31/21 17:30: Urine Color Yellow, Urine Appearance Clear, Urine pH 6.0, Ur Specific [place] >= 1.030, Urine Protein Negative, Urine Glucose (UA) Negative, Urine Ketones Negative, Urine Blood Negative, Urine Nitrate Negative, Urine Bilirubin Negative, Urine Urobilinogen 0.2, Ur Leukocyte Esterase Negative, Urine RBC None, Urine WBC Occasional, Ur Squamous Epith Cells 3-5, Urine Bacteria None 01/31/21 19:38: Troponin I 1.46 H 01/31/21 19:38: Lactate 1.9 01/31/21 23:41: Troponin I 1.25 H 02/01/21 05:35: PT 12.4, INR 1.11 H 02/01/21 05:35: Sodium 140, Potassium 4.6, Chloride 107, Carbon Dioxide 23, Anion Gap 14.6, BUN 45 H, Creatinine 1.20, Estimated Creat Clear 46, Estimated GFR 57 L, Est GFR ( Amer) 69, Glucose 177 H, Calcium 8.2 L, Magnesium 2.7 H, Total Bilirubin 0.8, AST 130 H, ALT 141 H, Alkaline Phosphatase 93, Total Protein 6.1 L, Albumin 3.1 L, Globulin 3.0, Albumin/Globulin Ratio 1.0 L Medical History: Reports:: Cancer (Skin), Gastroesophageal Reflux Disease(GERD), Hyperlipidemia, Hypertension, Internal Pacemaker, Myocardial Infarction Denies:: Diabetes Mellitus Type 1, Diabetes Mellitus Type 2, MRSA Assessment and Plan (1) Encephalopathy Status: Acute Category: Medical Code(s): G93.40 - Encephalopathy, unspecified (2) Hospital acquired PNA Status: Acute Category: M
[2021-02-01 08:27] LABS: Platelet Count 30 K/mm3 (142-424)
[2021-02-01 12:00] VITALS: BP 111/60; PULSE 79; PULSE 80; RESP 32; TEMP 36.4; O2SAT 100
--- NOTE | 2021-02-01 14:57 | SW/DCPLANNER ---
Addendum entered by Yulisa Todd 02/02/21 07:02: Cat rousseau/ Hospice informed me later yesterday afternoon that this patients daughter stated during onsite evaluation that she is not interested in Hospice services for this patient at this time. I will follow up with MD and patients family this AM. Original Note: I have received a referral regarding APS consult for this patient due to family disagreements. Compliance has stated that patients daughter (Rena) is health care surrogate and makes all healthcare decisions for this patient. Rena was present in patients room during my visit. Rena stated that she is not interested in placement for the father at time of discharge. I did explain that Dr Fitzpatrick has recommended Hospice services for this patient. After lengthy conversation with Rena she is agreeable to Hospice services. Patient information has been faxed to [facility]. I spoke with Cat rousseau/ [facility] and she has stated that she will review patient information and have a cash application representative evaluate this patient. I will follow up with Hospice once they evaluate this patient.
[2021-02-01 16:00] VITALS: BP 116/62; PULSE 76; PULSE 83; RESP 32; TEMP 37.2; O2SAT 97
--- NOTE | 2021-02-01 17:49 | PC.NURSE ---
Patient is on tele, occasional atrial paced. Patient is on 2L NC, tolerating well. Patient is incontinent of bowel and bladder, brief on. Patient has been confused, unable to answer questions. Patient was unable to take oral medications. Echo was completed at bedside. Cardiology consult complete. Health Care Surrogate form, POA, and DNR forms are in chart. Mago Bagley and myself, Nell Oshea, spoke with daughter Rena over the phone to confirm DNR order and wishes. Daughter and granddaughter has been in room with patient. Bed in lowest position and phone and call light in lowest position.
[2021-02-01 20:00] VITALS: BP 115/60; PULSE 82; PULSE 90; RESP 19; TEMP 36.5; O2SAT 92
[2021-02-02] VITALS (12 sets, daily range): BP systolic 110–134; BP diastolic 53–62; PULSE 70–101; RESP 18–30; TEMP 36.3–36.9; O2SAT 90–97; BMI 24.0; BMI 23.8
--- NOTE | 2021-02-02 03:15 | PC.NURSE ---
PT CONTINUES TO BE UNABLE TO ANSWER QUESTIONS OR FOLLOW COMMANDS. PT HAS HAD NO SPEECH THIS SHIFT. WILL MOAN OCCASIONALLY. PRN MEDICATION ADMINISTERED PER MAR. PT HAS SLEPT MAJORITY OF SHIFT. X2 ASSIST TO TURN IN BED. REMAINS INCONTINENT. BRIEF PRESENT, KEPT CDI. TOLERATING 2-3LNC WELL. PT FAMILY DOES SEEM A BIT TORN AND CONFUSED ON HOSPICE AND ITS MEANING. NO C/O THUS FAR, VSS WILL CONTINUE TO MONITOR.
--- NOTE | 2021-02-02 06:44 | HMH.ACPN2 ---
Internal Medicine - PN: Subj *Date: 02/02/21 *Time: 12:53 Interval history: Patient remains peaceful this morning on exam. Received several doses of morphine overnight to help him rest. Responds to physical stimuli with opening his eyes but no other meaningful response on exam. Blood pressure stable. Afebrile. Continues to require oxygen. No family at bedside on rounds. Family came in to visit patient after rounds, discussed talking about patient's goals after clinic this afternoon. Will meet with them at that time Exam Vital signs and Labs for Last 24 Hours: Temp Pulse Resp BP Pulse Ox 98.1 F 91 H 30 H 116/62 96 02/02/21 04:00 02/02/21 04:00 02/02/21 06:21 02/02/21 04:00 02/02/21 04:00 Laboratory Results - last 24 hr 02/01/21 05:35: WBC 6.5 D, RBC 3.05 L, Hgb 8.7 L, Hct 27.5 L, MCV 90.0, MCH 28.6, MCHC 31.8, RDW 16.0, Plt Count 30 L*, MPV 12.1 H, Neut % (Auto) 75.2, Lymph % (Auto) 19.8, Edgar % (Auto) 4.0, Eos % (Auto) 0.7, Baso % (Auto) 0.2, Neut # (Auto) 4.9, Lymph # (Auto) 1.3, Edgar # (Auto) 0.3, Eos # (Auto) 0.1, Baso # (Auto) 0.0 02/01/21 05:35: PT 12.4, INR 1.11 H I & O for Last 24 hours: Intake & Output 01/30/21 01/31/21 02/01/21 02/02/21 23:59 23:59 23:59 23:59 Output Total 400 / 400 50 / 50 Balance -400 / -400 -50 / -50 Weight 71.384 kg 73.028 kg 73.539 kg - Constitutional moderate distress, thin, chronically ill appearing, somnolent - *Routine HEENT Exam Head: Present: normocephalic Eye: Present: EOMI, PERRL ENT: Present: mucous membranes moist Comments: Bitemporal wasting and loss of periorbital fat - *Routine Neck Exam Present: supple. Absent: lymphadenopathy - *Routine Respiratory Exam Present: rhonchi, crackles, diminished air movement - *Routine Cardiovascular Exam Present: RRR - *Routine Abdominal Exam Present: soft, normoactive bowel sounds. Absent: tenderness - *Routine Extremities Exam Absent: cyanosis, clubbing, edema Comments: Numerous ecchymoses, sarcopenia - *Routine Skin Exam Present: warm, ecchymosis (On all 4 extremities). Absent: rash - *Routine Neurological Exam Present: altered mental status Opens eyes to voice and physical stimuli. Does not respond to questions. Withdraws but does not vocalize to pain. Assessment and Plan (1) Encephalopathy Status: Acute Category: Medical Code(s): G93.40 - Encephalopathy, unspecified (2) Hospital acquired PNA Status: Acute Category: Medical Code(s): J18.9 - Pneumonia, unspecified organism; Y95 - Nosocomial condition (3) NSTEMI (non-ST elevated myocardial infarction) Status: Acute Category: Medical Code(s): I21.4 - Non-ST elevation (NSTEMI) myocardial infarction (4) Shock liver Status: Acute Category: Medical Code(s): K72.00 - Acute and subacute hepatic failure without coma (5) ALEN (acute kidney injury) Status: Acute Category: Medical Code(s): N17.9 - Acute kidney failure, unspecified (6) Severe protein-calorie malnutrition Status: Chronic Category: Medical Code(s): E43 - Unspecified severe protein-calorie malnutrition - Assessment and plan all Dx Assessment and Plan for all problems:: Mr. Santana is an 85-year-old male with a recent COVID-19 pneumonia within the past 2 months. Has had multiple readmissions to the hospital in [place]. Has showed continued decline leading to admission at [place] this week for worsening tachypnea, dehydration, pneumonia, and NSTEMI. Cardiology consulted to assist with care. NSTEMI -Cardiology spoke to family and discussed his grave situation at this time. From their note Dr. Matamoros was available to talk with Rena (patient's POA) and explained the gravity of her fathers situation. Due to the low platelets taking him to the Reg[facility] Nurse Supervisor would be tantamount to killing him in light of the thrombocytopenia and the need for platelet therapy. She was made aware that the biggest issue is the low platelets in the set
[2021-02-02 07:40] LABS: Basophils % 0.5 % (0.1-2.0); Eosinophils # 0.1 K/mm3 (0.0-0.4); Eosinophils % 0.8 % (0.1-12.0); Hematocrit 26.3 % (42.0-52.0); Hemoglobin 8.2 g/dL (14.1-18.0); Lymphocytes # 1.6 K/mm3 (0.7-4.5); Lymphocytes % 23.7 % (10-50); Mean Corpuscular Hemoglobin 28.4 pg (27.0-31.2); Mean Corpuscular Volume 91.7 fl (80-94); Mean Platelet Volume 15.1 fl (7.4-10.4); Monocytes # 0.2 K/mm3 (0.1-1.0); Monocytes % 2.9 % (1.7-9.3); Neutrophils % 72.1 % (37.0-80.0); Red Blood Count 2.87 M/mm3 (4.60-6.20); Red Cell Distribution Width 16.1 % (11.5-17.5); White Blood Count 6.9 K/mm3 (4.8-10.8)
[2021-02-02 07:42] LABS: Chloride 110 mmol/L (98-107); Potassium 4.5 mmoL/L (3.5-5.1); Sodium 143 mmol/L (136-145)
[2021-02-02 07:44] LABS: Alanine Aminotransferase 112 U/L (12-78); Aspartate Amino Transferase 67 U/L (17-59); Blood Urea Nitrogen 41 mg/dl (9-20); Creatinine Clearance Estimated 42 mL/min (50-200); Estimated Glomerular Filt Rate 52 ml/min (>60); GFR (African American) 63 ML/MIN (>60); Platelet Count 33 K/mm3 (142-424)
[2021-02-02 07:45] LABS: Alkaline Phosphatase 91 U/L (38-126); Anion Gap 13.5 mEq/L (5-15); Bilirubin,Total 0.8 mg/dl (0.2-1.3); Calcium 8.2 mg/dl (8.4-10.2); Carbon Dioxide 24 mmol/L (22.0-30.0); Globulin 3.1 g/dL (1.3-3.2); Glucose 176 mg/dl (74-100); Magnesium 2.7 mg/dl (1.6-2.3); Total Protein,Serum 6.1 g/dl (6.3-8.2)
[2021-02-02 08:10] LABS: Troponin I 0.76 ng/ml (0.00-0.034)
--- NOTE | 2021-02-02 08:16 | XR_ITS ---
PROCEDURE: XR CHEST PORTABLE CLINICAL HISTORY: Pneumonia COMPARISON: CR XR RIBS LT MIN 3V W CXR1V from 01/05/2020 CR XR CHEST PORTABLE from 12/12/2020 CR XR CHEST PORTABLE from 01/31/2021 FINDINGS: Prominent diffuse bilateral ill-defined pneumonic infiltrates are seen with slight interval progression from the most recent study 01/31/2021. The pleural effusion at the right base is basically stable, there is some fluid ascending into the minor fissure. There is relative sparing of the lung apices bilaterally. There is stable generalized cardiomegaly. There is no obvious pulmonary congestion but vascularity is difficult to evaluate due to the diffuse bilateral ill-defined pneumonic infiltrates. There is severe far dance degenerate change of the right shoulder and moderate degenerative change left shoulder. The lungs are clear without infiltrates, suspicious nodules, or pleural effusions. No acute bony abnormalities. IMPRESSION: Slight interval progression of diffuse bilateral ill-defined pneumonic infiltrates consistent with Covid19 pneumonia and associated with a small to moderate size right pleural effusion Dictated by: Dr. Hola Hurtado MD 02/02/2021 10:09 Dr. Hola Hurtado MD in [place] 02/02/2021 10:09
--- NOTE | 2021-02-02 10:57 | HMH.PNCARD ---
Subjective Date: 02/02/21 Time: 10:58 Principal diagnosis: Encephalopathy, Pancytopenia, recent COVID exposure Interval history: 85-year-old white male in bed in no acute distress. He does have some tachypnea with some audible rhonchi. Patient still is noncommunicative. Blood pressure is stable. He did receive morphine earlier this morning after family request. Patient's daughter, Rena, requested conversation with me or Dr. Matamoros. Dr. Matamoros was available to talk with her and explained the gravity of her fathers situation. Due to the low platelets taking him to the [facility] would be tantamount to killing him in light of the thrombocytopenia and the need for platelet therapy. She was made aware that the biggest issue is the low platelets in the setting of post Covid infection and damage to the lungs from the recent Covid exposure. Regarding the noncommunicative status, patient does have some underlying ischemic white matter disease which may be compounded by post Covid exposure and medication. We recommended discontinuing the morphine to see if he wakes up in the next 24 to 48 hours. If not then consider stopping antibiotic therapy to see if that brings about an improvement in his mental status. It was relayed to her that we did not think this would happen but it was worth a try. Dr. Matamoros did recommend that the family members who wanted to see him be called in to say their goodbyes and spend some time with him if they wished. Rena seem to be very receptive to this and understanding but would like to try reduction of medical therapy to see if this would help. Patient's nurse Nell Neumann was witness. CXR this AM shows progressive infiltrates with small to mod right pleural effusion. Lasix 40 mg IV X 1 was given. Exam Vital signs and Labs for Last 24 Hours: Temp Pulse Resp BP Pulse Ox 98.4 F 77 22 119/56 L 93 L 02/02/21 07:42 02/02/21 07:42 02/02/21 07:42 02/02/21 07:42 02/02/21 07:42 Laboratory Results - last 24 hr 02/02/21 07:22: WBC 6.9, RBC 2.87 L, Hgb 8.2 L, Hct 26.3 L, MCV 91.7, MCH 28.4, MCHC 31.0 L, RDW 16.1, Plt Count 33 L*, MPV 15.1 H, Neut % (Auto) 72.1, Lymph % (Auto) 23.7, [place] % (Auto) 2.9, Eos % (Auto) 0.8, Baso % (Auto) 0.5, Neut # (Auto) 5.0, Lymph # (Auto) 1.6, [place] # (Auto) 0.2, Eos # (Auto) 0.1, Baso # (Auto) 0.0 02/02/21 07:22: Sodium 143, Potassium 4.5, Chloride 110 H, Carbon Dioxide 24, Anion Gap 13.5, BUN 41 H, Creatinine 1.30 H, Estimated Creat Clear 42, Estimated GFR 52 L, Est GFR ( Amer) 63, Glucose 176 H, Calcium 8.2 L, Magnesium 2.7 H, Total Bilirubin 0.8, AST 67 H D, ALT 112 H, Alkaline Phosphatase 91, Troponin I 0.76 H, Total Protein 6.1 L, Albumin 3.0 L, Globulin 3.1, Albumin/Globulin Ratio 1.0 L I & O for Last 24 hours: Intake & Output 01/30/21 01/31/21 02/01/21 02/02/21 11:59 11:59 11:59 11:59 Intake Total 0 / 0 Output Total 450 / 450 Balance -450 / -450 0 / 0 Weight 161 lb 160 lb 14.999 oz - Constitutional mild distress - *Routine Respiratory Exam Present: rhonchi, diminished air movement - *Routine Cardiovascular Exam Present: RRR - *Routine Extremities Exam Present: edema. 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 Please see above.
--- NOTE | 2021-02-02 13:56 | PC.NURSE ---
pt unable to proiduce a sputum samlple at this time due to mental and physical state.
--- NOTE | 2021-02-02 15:56 | PC.NURSE ---
Patient is on telemetry, NSR with occasional atrial paced rhythm. Patient is on 2.5L NC. Patient is bedridden. Patient has been resting peacefully. Daughter has visited with patient today. Daughter spoke with USAMA Maciel and Dr. Matamoros; from cardiology in regards to patients condition and plan of care. Patient is supposed to speak with Dr. Butcher also. Patient is incontinent of bowel and bladder. Total assist and care. Bed in lowest position and phone and call light in reach.
--- NOTE | 2021-02-02 16:26 | DIET.NUTRFU ---
Addendum entered by Rosalee Dudley 02/05/21 14:36: Remains obtuned, NPO. Electrolytes elevated, renal function declining, BG moderate-high avg. 170, weight stable. Original Note: Nutritional assessment, IP/consult completed. Pt with moderate malnutrition. Pt NPO at this time dt inability to safely tolerate PO intake. Will monitor to advance diet/add supplementation as indicated/appropriate.
[2021-02-03] VITALS (14 sets, daily range): BP systolic 111–156; BP diastolic 41–70; PULSE 70–116; RESP 16–28; TEMP 36.8–37.2; O2SAT 91–98; BMI 23.8
--- NOTE | 2021-02-03 05:37 | PC.NURSE ---
pt has rested t/o shift, does not speak but will occasionally moan, pt has been given PRN medication per MAR, remains on 2.5 L NC with O2 sats 92-96%
[2021-02-03 05:41] LABS: Basophils % 0.5 % (0.1-2.0); Eosinophils % 0.4 % (0.1-12.0); Hematocrit 26.4 % (42.0-52.0); Lymphocytes # 1.6 K/mm3 (0.7-4.5); Monocytes # 0.2 K/mm3 (0.1-1.0); Red Cell Distribution Width 16.5 % (11.5-17.5)
[2021-02-03 05:46] LABS: Hemoglobin 7.9 g/dL (14.1-18.0); Lymphocytes % 21.1 % (10-50); Mean Corpuscular HGB Conc 30.1 g/dL (31.8-35.4); Mean Corpuscular Hemoglobin 28.4 pg (27.0-31.2); Mean Corpuscular Volume 94.5 fl (80-94); Mean Platelet Volume 12.2 fl (7.4-10.4); Monocytes % 2.5 % (1.7-9.3); Neutrophils # 5.7 K/mm3 (1.8-7.8); Neutrophils % 75.4 % (37.0-80.0); White Blood Count 7.6 K/mm3 (4.8-10.8)
[2021-02-03 05:49] LABS: Platelet Count 23 K/mm3 (142-424)
[2021-02-03 05:53] LABS: Alanine Aminotransferase 83 U/L (12-78); Albumin Level 2.8 g/dl (3.5-5.0); Albumin/Globulin Ratio 0.9 (1.1-1.8); Alkaline Phosphatase 94 U/L (38-126); Anion Gap 14.4 mEq/L (5-15); Aspartate Amino Transferase 43 U/L (17-59); Bilirubin,Total 0.7 mg/dl (0.2-1.3); Blood Urea Nitrogen 42 mg/dl (9-20); Calcium 8.3 mg/dl (8.4-10.2); Carbon Dioxide 22 mmol/L (22.0-30.0); Chloride 113 mmol/L (98-107); Creatinine Clearance Estimated 39 mL/min (50-200); Estimated Glomerular Filt Rate 48 ml/min (>60); GFR (African American) 58 ML/MIN (>60); Glucose 172 mg/dl (74-100); Magnesium 2.7 mg/dl (1.6-2.3); Potassium 4.4 mmoL/L (3.5-5.1); Sodium 145 mmol/L (136-145); Total Protein,Serum 5.8 g/dl (6.3-8.2)
--- NOTE | 2021-02-03 08:58 | P.PN_ITS ---
Internal Medicine - PN: Subj *Date: 02/03/21 *Time: 08:58 Interval history: Patient remains obtunded. Very minimally responsive except to vigorous tactile stimuli. Some agonal breathing noted. Exam Vital signs and Labs for Last 24 Hours: Temp Pulse Resp BP Pulse Ox 99 F 92 H 24 129/63 94 L 02/03/21 04:00 02/03/21 06:38 02/03/21 08:33 02/03/21 04:00 02/03/21 06:37 Laboratory Results - last 24 hr 02/03/21 05:21: WBC 7.6, RBC 2.80 L, Hgb 7.9 L, Hct 26.4 L, MCV 94.5 H, MCH 28.4, MCHC 30.1 L, RDW 16.5, Plt Count 23 L* D, MPV 12.2 H, Neut % (Auto) 75.4, Lymph % (Auto) 21.1, [place] % (Auto) 2.5, Eos % (Auto) 0.4, Baso % (Auto) 0.5, Neut # (Auto) 5.7, Lymph # (Auto) 1.6, [place] # (Auto) 0.2, Eos # (Auto) 0.0, Baso # (Auto) 0.0 02/03/21 05:21: Sodium 145, Potassium 4.4, Chloride 113 H, Carbon Dioxide 22, Anion Gap 14.4, BUN 42 H, Creatinine 1.40 H, Estimated Creat Clear 39, Estimated GFR 48 L, Est GFR ( Amer) 58 L, Glucose 172 H, Calcium 8.3 L, Magnesium 2.7 H, Total Bilirubin 0.7, AST 43 D, ALT 83 H D, Alkaline Phosphatase 94, Total Protein 5.8 L, Albumin 2.8 L, Globulin 3.0, Albumin/Globulin Ratio 0.9 L I & O for Last 24 hours: Intake & Output 01/31/21 02/01/21 02/02/21 02/03/21 11:59 11:59 11:59 11:59 Intake Total 0 / 0 0 / 0 Output Total 450 / 450 Balance -450 / -450 0 / 0 0 / 0 Weight 161 lb 160 lb 14.999 oz 160 lb 14.999 oz Narrative: Patient has agonal breathing with some improvement after Roxanol was given. Vital signs otherwise remained stable. No visible rash or sites of bleeding. Rhonchorous lungs bilaterally with very poor air entry. Heart rate regular. Abdomen is soft. Extremities are warm and well-perfused. Neurologic exam limited because of his obtunded status. Oropharynx dry but clear. Assessment and Plan (1) Encephalopathy Status: Acute Category: Medical Code(s): G93.40 - Encephalopathy, unspecified (2) Hospital acquired PNA Status: Acute Category: Medical Code(s): J18.9 - Pneumonia, unspecified organism; Y95 - Nosocomial condition (3) NSTEMI (non-ST elevated myocardial infarction) Status: Acute Category: Medical Code(s): I21.4 - Non-ST elevation (NSTEMI) myocardial infarction (4) Shock liver Status: Acute Category: Medical Code(s): K72.00 - Acute and subacute hepatic failure without coma (5) ALEN (acute kidney injury) Status: Acute Category: Medical Code(s): N17.9 - Acute kidney failure, unspecified (6) Severe protein-calorie malnutrition Status: Chronic Category: Medical Code(s): E43 - Unspecified severe protein- calorie malnutrition - Assessment and plan all Dx Assessment and Plan for all problems:: Multiorgan failure for problem list noted above. Discussed case once again this morning with Domingo, who is patient's healthcare surrogate. She reiterated a DNR status. Had lots of questions about whether or not he would need platelet or plasma infusions. I told her there is no indication for this given his lack of bleeding status and that his platelet count was above 20,000. Discussed that he was fairly comfortable. She wondered about increasing morphine to every 2 as needed and that we will be reordering this for that interval as needed. Patient's prognosis is terminal and she understands this.
--- NOTE | 2021-02-03 17:31 | PC.NURSE ---
PT IS RESTING IN BED WITH FAMILY AT BEDSIDE. PT WILL OPEN HIS EYES AND RESPOND VERY MINIMALLY TO PAINFUL STIMULI. MEDICATED PER MAR FOR COMFORT. FAMILY HAS BEEN VERY ADAMANT WITH WANTING TO KEEP PT COMFORTABLE AND WANTING PT TO REMAIN DNR STATUS HOWEVER THE DAUGHTER THAT HAS BEEN IN THE ROOM T/O THE SHIFT HAS ALSO EXPRESSED CONCERNS TODAY AND HAS BEEN ADAMANT ABOUT ME CONTACTING THE PCP ABOUT GETTING SPECIFIC ORDERS ( IV STEROIDS, PLATELETS AND POSSIBLE TRANSFER TO ANOTHER HOSPITAL). HAD A DISCUSSION ABOUT THE PLATELETS WITH DAUGHTER OVER THE PHONE AND EXPLAINED TO DAUGHTER THAT PT'S PLATELET COUNT WAS NOT LOW ENOUGH TO BE TRANSFUSED. EARLIER IN THE AFTERNOON PT ASKED IF COULD BE CONTACTED ABOUT THE STEROIDS AND TRANSFER. CONTACTED AND HE STATED STEROIDS WOULD NOT HELP AND HIS BLOOD COUNTS WOULD NOT IMPROVE AND FAR TRANSFER ANOTHER HOSPITAL WOULD NOT DO ANY DIFFERENTLY AND IF PT WOULD BENEFIT THEY WOULD HAVE ALREADY TRANSFERRED WHICH CARDIOLOGY AGREES. IF SHE WANTS PULMONARY TO SEE HIM FOR ANOTHER OPINION THEN WE COULD NOTIFY [facility]. AFTER TALKING WITH DAUGHTER SHE DID STATE SHE WANTED PULMONOLOGY TO SEE PT ALSO. WAS NOTIFIED BUT HE STATED HE WOULD NOT SEE PT UNTIL FRIDAY AND DAUGHTER WAS MADE AWARE. T/O THE DAY WHILE TAKING CARE OF PT AND TALKING WITH SEVERAL FAMILY MEMBERS THERE IS OBVIOUSLY FAMILY ISSUES THAT IS COMING UP VERY FREQUENTLY THAT HAS NOTHING TO DO WITH PT'S CARE. THIS NURSE HAS STATED TO FAMILY SEVERAL TIMES THAT IT IS THE STAFFS JOB HERE AT [facility] DO WHAT IS BEST FOR THE PT. DURAN HAS BEEN CONTACTED IN RISK MANAGEMENT/[employer] SOCIAL WORKER ABOUT CONCERNS.
[2021-02-03 17:44] LABS: Vancomycin,Trough 17.7 ug/mL (5.0-10.0)
[2021-02-03 21:53] LABS: Vancomycin,Peak 39.9 ug/ml (11-39)
[2021-02-04] VITALS (11 sets, daily range): BP systolic 67–158; BP diastolic 36–66; PULSE 87–121; RESP 16–26; TEMP 36.6–38.5; O2SAT 95–98; BMI 23.8
--- NOTE | 2021-02-04 05:29 | PC.NURSE ---
pt has rested t/o shift, has not made any noise at all except when repositioned, no agitation present this shift, remains on 2.5L NC with O2 sats 96-98%, PRN meds given per MAR
--- NOTE | 2021-02-04 08:38 | P.PN_ITS ---
Internal Medicine - PN: Subj *Date: 02/04/21 *Time: 08:38 Interval history: Patient remains obtunded and unresponsive overnight. Remains comfortable. Nurses have done an excellent job of as needed Roxanol delivery, Levsin seems to have helped the secretions. His daughter Rena and one of her daughter is at bedside today. Amada, Mr. Santana's other daughter has also visited yesterday. There remains a great deal of confusion between the sisters regarding legal authority/POA/healthcare surrogate issues. Exam Vital signs and Labs for Last 24 Hours: Temp Pulse Resp BP Pulse Ox 97.8 F 110 H 22 119/66 96 02/04/21 08:00 02/04/21 08:00 02/04/21 08:00 02/04/21 08:00 02/04/21 08:00 Laboratory Results - last 24 hr 02/03/21 16:50: Vancomycin Trough 17.7 H 02/03/21 21:15: Vancomycin Peak 39.9 H I & O for Last 24 hours: Intake & Output 02/01/21 02/02/21 02/03/21 02/04/21 11:59 11:59 11:59 11:59 Intake Total 0 / 0 0 / 0 1086 / 1086 Output Total 450 / 450 Balance -450 / -450 0 / 0 0 / 0 1086 / 1086 Weight 161 lb 160 lb 14.999 oz 160 lb 14.999 oz 160 lb 14.999 oz Narrative: Patient remains obtunded, unresponsive to tactile or verbal stimuli. Breathing is shallow and slightly tachypneic but symmetric air entry. Heart rate tachycardic. Pacemaker spikes noted occasionally on monitor. Blood pressure in the 110s. Extremities are poorly perfused but warm. Abdomen soft. Assessment and Plan (1) Encephalopathy Status: Acute Category: Medical Code(s): G93.40 - Encephalopathy, unspecified (2) Hospital acquired PNA Status: Acute Category: Medical Code(s): J18.9 - Pneumonia, unspecified organism; Y95 - Nosocomial condition (3) NSTEMI (non-ST elevated myocardial infarction) Status: Acute Category: Medical Code(s): I21.4 - Non-ST elevation (NSTEMI) myocardial infarction (4) Shock liver Status: Acute Category: Medical Code(s): K72.00 - Acute and subacute hepatic failure without coma (5) ALEN (acute kidney injury) Status: Acute Category: Medical Code(s): N17.9 - Acute kidney failure, unspecified (6) Severe protein-calorie malnutrition Status: Chronic Category: Medical Code(s): E43 - Unspecified severe protein- calorie malnutrition - Assessment and plan all Dx Assessment and Plan for all problems:: End-stage lung disease with terminal aspiration pneumonia and non-STEMI with shock liver and multiorgan failure. Continue palliative care. Appreciate cardiology input. Discussed case with daughter, Rena, she understands poor prognosis. Discussed reevaluating with hospice tomorrow if indicated. She indicates that her father would not want to at home. Consider inpatient continuing hospice care versus hospice care center depending on the next 24-hour course.
[2021-02-04 09:00] LABS: Basophils # 0.1 K/mm3 (0-0.2); Basophils % 0.7 % (0.1-2.0); Eosinophils # 0.1 K/mm3 (0.0-0.4); Eosinophils % 0.4 % (0.1-12.0); Hematocrit 25.9 % (42.0-52.0); Hemoglobin 7.8 g/dL (14.1-18.0); Lymphocytes # 5.4 K/mm3 (0.7-4.5); Lymphocytes % 31.4 % (10-50); Mean Corpuscular HGB Conc 30.1 g/dL (31.8-35.4); Mean Corpuscular Hemoglobin 28.7 pg (27.0-31.2); Mean Corpuscular Volume 95.5 fl (80-94); Mean Platelet Volume 12.4 fl (7.4-10.4); Monocytes # 0.4 K/mm3 (0.1-1.0); Monocytes % 2.1 % (1.7-9.3); Neutrophils # 11.3 K/mm3 (1.8-7.8); Neutrophils % 65.4 % (37.0-80.0); Red Blood Count 2.72 M/mm3 (4.60-6.20); Red Cell Distribution Width 16.2 % (11.5-17.5); White Blood Count 17.3 K/mm3 (4.8-10.8)
[2021-02-04 09:03] LABS: Platelet Count 19 K/mm3 (142-424)
[2021-02-04 09:04] LABS: MANUAL DIFFERENTIAL MANUAL DIFFERENTIAL (MANUAL DIFF)
[2021-02-04 09:16] LABS: Chloride 116 mmol/L (98-107); Potassium 4.5 mmoL/L (3.5-5.1); Sodium 148 mmol/L (136-145)
[2021-02-04 09:19] LABS: Blood Urea Nitrogen 45 mg/dl (9-20); Creatinine Clearance Estimated 39 mL/min (50-200); Estimated Glomerular Filt Rate 48 ml/min (>60); GFR (African American) 58 ML/MIN (>60)
[2021-02-04 09:20] LABS: Anion Gap 11.5 mEq/L (5-15); Calcium 8.3 mg/dl (8.4-10.2); Carbon Dioxide 25 mmol/L (22.0-30.0); Glucose 167 mg/dl (74-100)
--- NOTE | 2021-02-04 10:35 | P.PN_ITS ---
Internal Medicine - PN: Subj *Date: 02/04/21 *Time: 10:35 Exam Vital signs and Labs for Last 24 Hours: Temp Pulse Resp BP Pulse Ox 97.8 F 103 H 26 H 119/66 95 02/04/21 08:00 02/04/21 08:00 02/04/21 08:40 02/04/21 08:00 02/04/21 08:00 Laboratory Results - last 24 hr 02/03/21 16:50: Vancomycin Trough 17.7 H 02/03/21 21:15: Vancomycin Peak 39.9 H 02/04/21 08:43: WBC 17.3 H D, RBC 2.72 L, Hgb 7.8 L, Hct 25.9 L, MCV 95.5 H, MCH 28.7, MCHC 30.1 L, RDW 16.2, Plt Count 19 L*, MPV 12.4 H, Neut % (Auto) 65.4, Lymph % (Auto) 31.4, [place] % (Auto) 2.1, Eos % (Auto) 0.4, Baso % (Auto) 0.7, Neut # (Auto) 11.3 H, Lymph # (Auto) 5.4 H, [place] # (Auto) 0.4, Eos # (Auto) 0.1, Baso # (Auto) 0.1 02/04/21 08:43: Sodium 148 H, Potassium 4.5, Chloride 116 H, Carbon Dioxide 25, Anion Gap 11.5, BUN 45 H, Creatinine 1.40 H, Estimated Creat Clear 39, Estimated GFR 48 L, Est GFR ( Amer) 58 L, Glucose 167 H, Calcium 8.3 L I & O for Last 24 hours: Intake & Output 02/01/21 02/02/21 02/03/21 02/04/21 23:59 23:59 23:59 23:59 Intake Total 0 / 0 1086 / 1086 Output Total 50 / 50 Balance -50 / -50 0 / 0 1086 / 1086 Weight 73.028 kg 73 kg 73 kg 73 kg Assessment and Plan (1) Encephalopathy Status: Acute Category: Medical Code(s): G93.40 - Encephalopathy, unspecified (2) Hospital acquired PNA Status: Acute Category: Medical Code(s): J18.9 - Pneumonia, unspecified organism; Y95 - Nosocomial condition (3) NSTEMI (non-ST elevated myocardial infarction) Status: Acute Category: Medical Code(s): I21.4 - Non-ST elevation (NSTEMI) myocardial infarction (4) Shock liver Status: Acute Category: Medical Code(s): K72.00 - Acute and subacute hepatic failure without coma (5) ALEN (acute kidney injury) Status: Acute Category: Medical Code(s): N17.9 - Acute kidney failure, unspecified (6) Severe protein-calorie malnutrition Status: Chronic Category: Medical Code(s): E43 - Unspecified severe protein- calorie malnutrition The patient's infection will respond to the chosen ABx?: Yes Is the patient receiving the right drug, dose, and route?: Yes Could a more targeted ABx be ordered?: No (NO SPUTUM CX AT THIS TIME. CONT CURRENT ABX.)
[2021-02-04 10:49] LABS: Hypochromasia 2+; Lymphocytes % 33 % (10-50); Macrocytosis 2+; Monocytes % 2 % (2-9); Neutrophils % 52 % (42-76); Platelet Estimate Normal; Total Cells Counted 100
[2021-02-04 10:50] LABS: Anisocytosis 2+
--- NOTE | 2021-02-04 10:55 | HMH.PHACONS ---
- Pharmacy Consult Date: 02/04/21 Time: 10:55 Referring provider: DR. ERICKSON Reason for Consult:: VANCOMYCIN LEVELS Allergies and ADEs:: Allergies Allergy/AdvReac Type Severity Reaction Status Date / Time influenza virus vaccine, Allergy Unknown Verified 01/31/21 18:14 specific [INFLUENZA VIRUS VACC,SPECIFIC] Penicillins [PENICILLINS] Allergy Unknown I-RASH Verified 01/31/21 18:14 Home Medications:: Home Medications Medication Instructions Recorded Confirmed Type allopurinol 100 mg tablet 100 mg PO DAILY 07/31/17 01/31/21 History atenolol 25 mg tablet 25 mg PO BID 07/31/17 01/31/21 History doxazosin 4 mg tablet 2 mg PO DAILY 07/31/17 01/31/21 History gabapentin 100 mg capsule 100 mg PO TID 07/31/17 02/01/21 History levothyroxine 50 mcg capsule 50 mcg PO DAILY 07/31/17 01/31/21 History potassium chloride 10 mEq 10 meq PO BID 07/31/17 01/31/21 History capsule,extended release pravastatin 40 mg tablet 40 mg PO HS 07/31/17 02/01/21 History omeprazole 40 mg capsule,delayed 40 mg PO DAILY cap 03/20/20 01/31/21 History release furosemide 40 mg tablet 40 mg PO BID tab 05/29/20 01/31/21 History Aspirin 81 mg PO DAILY 05/31/20 02/01/21 History trazodone 50 mg tablet 50 mg PO HS tab 01/25/21 02/01/21 History Rivaroxaban [Xarelto] 2.5 mg PO DAILY 01/31/21 01/31/21 History Famotidine [Acid Outsole Cutter Machine] 20 mg PO HS 02/01/21 02/01/21 History Fluticasone Propionate 2 sprays NS DAILY 02/01/21 02/01/21 History Height: 1.75 m Weight: 73 kg Laboratory Results:: Laboratory Results - last 24 hr 02/03/21 16:50: Vancomycin Trough 17.7 H 02/03/21 21:15: Vancomycin Peak 39.9 H 02/04/21 08:43: WBC 17.3 H D, RBC 2.72 L, Hgb 7.8 L, Hct 25.9 L, MCV 95.5 H, MCH 28.7, MCHC 30.1 L, RDW 16.2, Plt Count 19 L*, MPV 12.4 H, Neut % (Auto) 65.4, Lymph % (Auto) 31.4, [place] % (Auto) 2.1, Eos % (Auto) 0.4, Baso % (Auto) 0.7, Neut # (Auto) 11.3 H, Lymph # (Auto) 5.4 H, [place] # (Auto) 0.4, Eos # (Auto) 0.1, Baso # (Auto) 0.1, Total Counted 100, Neutrophils % (Manual) 52, Lymphocytes % (Manual) 33, Monocytes % (Manual) 2, Blast Cells % 13.0, Platelet Estimate Normal, Hypochromasia 2+, Anisocytosis 2+, Macrocytosis 2+ 02/04/21 08:43: Sodium 148 H, Potassium 4.5, Chloride 116 H, Carbon Dioxide 25, Anion Gap 11.5, BUN 45 H, Creatinine 1.40 H, Estimated Creat Clear 39, Estimated GFR 48 L, Est GFR ( Amer) 58 L, Glucose 167 H, Calcium 8.3 L Medical History: Reports:: Cancer (Skin), Gastroesophageal Reflux Disease(GERD), Hyperlipidemia, Hypertension, Internal Pacemaker, Myocardial Infarction Denies:: Diabetes Mellitus Type 1, Diabetes Mellitus Type 2, MRSA Assessment and Plan (1) Encephalopathy Status: Acute Category: Medical Code(s): G93.40 - Encephalopathy, unspecified (2) Hospital acquired PNA Status: Acute Category: Medical Code(s): J18.9 - Pneumonia, unspecified organism; Y95 - Nosocomial condition (3) NSTEMI (non-ST elevated myocardial infarction) Status: Acute Category: Medical Code(s): I21.4 - Non-ST elevation (NSTEMI) myocardial infarction (4) Shock liver Status: Acute Category: Medical Code(s): K72.00 - Acute and subacute hepatic failure without coma (5) ALEN (acute kidney injury) Status: Acute Category: Medical Code(s): N17.9 - Acute kidney failure, unspecified (6) Severe protein-calorie malnutrition Status: Chronic Category: Medical Code(s): E43 - Unspecified severe protein-calorie malnutrition - Assessment and plan all Dx Assessment and Plan for all problems:: PATIENT'S VANCOMYCIN PEAK AND TROUGH WERE 17.7 MCG/ML AND 39.9 MCG/ML, RESPECTIVELY. RECOMMEND CONTINUING WITH CURRENT DOSE AND INTERVAL OF VANCOMYCIN 1250 MG Q24H AT THIS TIME.
--- NOTE | 2021-02-04 18:52 | PC.NURSE ---
PT IS RESTING COMFORTABLE IN BED WITH FAMILY AT BEDSIDE. DURING ROUNDS THIS MORNING A LONG DISCUSSION WAS HAD WITH FAMILY AT BEDSIDE ABOUT PT CONTINUING TO DECLINE. DAUGHTER AT BEDSIDE STATED WITH PHYSICIAN AND THIS NURSE AT BEDSIDE I JUST DO NOT WANT HIM TO SUFFER PT HAS BEEN MEDICATED PER MAR WITH MORPHINE/ATIVAN/LEVSIN T/O THE SHIFT. PT HAS HAD PERIODS OFF AND ON OF AGONAL BREATHING T/O THE SHIFT. UNRESPONSIVE. SINUS TACH ON TELEMETRY. BP DECLINED LATE THIS AFTERNOON AT 1700. PT WAS TURNED AND REPOSITIONED AT THIS TIME AND RECEIVED A DOSE OF LEVSIN FOR SECRETIONS. DAUGHTER AT BEDSIDE CALLED A FEW OTHER FAMILY MEMBERS AND STATED PT'S OTHER GRANDAUGHTER WAS ON THE WAY TO SEE PT. REPORT HAND OFF TO HERBERT ANDERSON RN
[2021-02-05] VITALS (8 sets, daily range): BP systolic 66–82; BP diastolic 29–33; PULSE 80–100; RESP 20; TEMP 36.3–37; O2SAT 84–100; BMI 23.8
[2021-02-05 06:10] LABS: Basophils # 0.2 K/mm3 (0-0.2); Basophils % 1.1 % (0.1-2.0); Eosinophils # 0.1 K/mm3 (0.0-0.4); Eosinophils % 0.6 % (0.1-12.0); Hematocrit 26.4 % (42.0-52.0); Hemoglobin 7.6 g/dL (14.1-18.0); Lymphocytes # 2.7 K/mm3 (0.7-4.5); Lymphocytes % 13.5 % (10-50); Mean Corpuscular HGB Conc 28.9 g/dL (31.8-35.4); Mean Corpuscular Hemoglobin 28.6 pg (27.0-31.2); Mean Corpuscular Volume 99.2 fl (80-94); Mean Platelet Volume 13.1 fl (7.4-10.4); Monocytes # 0.4 K/mm3 (0.1-1.0); Monocytes % 1.8 % (1.7-9.3); Neutrophils # 16.8 K/mm3 (1.8-7.8); Red Blood Count 2.66 M/mm3 (4.60-6.20); Red Cell Distribution Width 16.3 % (11.5-17.5); White Blood Count 20.2 K/mm3 (4.8-10.8)
[2021-02-05 06:20] LABS: Platelet Count 13 K/mm3 (142-424)
[2021-02-05 06:21] LABS: MANUAL DIFFERENTIAL MANUAL DIFFERENTIAL (MANUAL DIFF)
--- NOTE | 2021-02-05 06:21 | PC.NURSE ---
Staff approached poa for pt. to be t/r q2h; pt. turned per poa request. Oral care q2h. prn meds given per poa. Resp rate and depth even. Rhonchi t/o lungs. Pt. nonverbal. O2 sat varying since 0200; 3L nc with o2 sat 55%-81%. BP continues to decrease. Pt. extremities cool to touch, abd and head warm; has been afebrile.
[2021-02-05 07:16] LABS: Blood Urea Nitrogen 66 mg/dl (9-20); Calcium 8.1 mg/dl (8.4-10.2); Carbon Dioxide 21 mmol/L (22.0-30.0); Chloride 118 mmol/L (98-107); Creatinine Clearance Estimated 23 mL/min (50-200); Estimated Glomerular Filt Rate 26 ml/min (>60); GFR (African American) 31 ML/MIN (>60); Glucose 146 mg/dl (74-100); Sodium 147 mmol/L (136-145)
[2021-02-05 07:19] LABS: Anion Gap 13.8 mEq/L (5-15); Potassium 5.8 mmoL/L (3.5-5.1)
--- NOTE | 2021-02-05 07:37 | PC.NURSE ---
Patient unresponsive so no sputum has been obtained. Respirations agonal at times so respiratory uncomfortable about suctioning.
--- NOTE | 2021-02-05 08:57 | HMH.ACPN2 ---
Internal Medicine - PN: Subj *Date: 02/05/21 *Time: 08:57 Interval history: Patient remains obtunded. Unresponsive. Blood pressure the night has begun to decline. Exam Vital signs and Labs for Last 24 Hours: Temp Pulse Resp BP Pulse Ox 97.6 F 84 20 66/29 L 84 L 02/05/21 03:15 02/05/21 06:07 02/05/21 08:47 02/05/21 03:15 02/05/21 06:07 Laboratory Results - last 24 hr 02/04/21 08:43: WBC 17.3 H D, RBC 2.72 L, Hgb 7.8 L, Hct 25.9 L, MCV 95.5 H, MCH 28.7, MCHC 30.1 L, RDW 16.2, Plt Count 19 L*, MPV 12.4 H, Neut % (Auto) 65.4, Lymph % (Auto) 31.4, Preble % (Auto) 2.1, Eos % (Auto) 0.4, Baso % (Auto) 0.7, Neut # (Auto) 11.3 H, Lymph # (Auto) 5.4 H, Preble # (Auto) 0.4, Eos # (Auto) 0.1, Baso # (Auto) 0.1, Total Counted 100, Neutrophils % (Manual) 52, Lymphocytes % (Manual) 33, Monocytes % (Manual) 2, Blast Cells % 13.0, Platelet Estimate Normal, Hypochromasia 2+, Anisocytosis 2+, Macrocytosis 2+ 02/04/21 08:43: Sodium 148 H, Potassium 4.5, Chloride 116 H, Carbon Dioxide 25, Anion Gap 11.5, BUN 45 H, Creatinine 1.40 H, Estimated Creat Clear 39, Estimated GFR 48 L, Est GFR ( Amer) 58 L, Glucose 167 H, Calcium 8.3 L 02/05/21 06:00: WBC 20.2 H*, RBC 2.66 L, Hgb 7.6 L, Hct 26.4 L, MCV 99.2 H, MCH 28.6, MCHC 28.9 L, RDW 16.3, Plt Count 13 L* D, MPV 13.1 H, Neut % (Auto) 83.0 H, Lymph % (Auto) 13.5, Preble % (Auto) 1.8, Eos % (Auto) 0.6, Baso % (Auto) 1.1, Neut # (Auto) 16.8 H, Lymph # (Auto) 2.7, Preble # (Auto) 0.4, Eos # (Auto) 0.1, Baso # (Auto) 0.2 02/05/21 06:00: Sodium 147 H, Potassium 5.8 H D, Chloride 118 H, Carbon Dioxide 21 L, Anion Gap 13.8, BUN 66 H D, Creatinine 2.40 H D, Estimated Creat Clear 23, Estimated GFR 26 L, Est GFR ( Amer) 31 L D, Glucose 146 H, Calcium 8.1 L I & O for Last 24 hours: Intake & Output 02/02/21 02/03/21 02/04/21 02/05/21 11:59 11:59 11:59 11:59 Intake Total 0 / 0 0 / 0 1086 / 1086 Balance 0 / 0 0 / 0 1086 / 1086 Weight 160 lb 14.999 oz 160 lb 14.999 oz 160 lb 14.999 oz 160 lb 14.999 oz Narrative: Family at bedside. Patient is obtunded. Breathing agonal he. Blood pressure in the 60s systolic. Heart rate in the 100s. Feet perfusion is noticeably worse with cooler extremities. Lungs have rhonchi and poor air movement. Heart rate irregular. Abdomen soft. Neurologically nonresponsive. Assessment and Plan (1) Encephalopathy Status: Acute Category: Medical Code(s): G93.40 - Encephalopathy, unspecified (2) Hospital acquired PNA Status: Acute Category: Medical Code(s): J18.9 - Pneumonia, unspecified organism; Y95 - Nosocomial condition (3) NSTEMI (non-ST elevated myocardial infarction) Status: Acute Category: Medical Code(s): I21.4 - Non-ST elevation (NSTEMI) myocardial infarction (4) Shock liver Status: Acute Category: Medical Code(s): K72.00 - Acute and subacute hepatic failure without coma (5) ALEN (acute kidney injury) Status: Acute Category: Medical Code(s): N17.9 - Acute kidney failure, unspecified (6) Severe protein-calorie malnutrition Status: Chronic Category: Medical Code(s): E43 - Unspecified severe protein-calorie malnutrition - Assessment and plan all Dx Assessment and Plan for all problems:: Patient is actively dying. Pulmonary consult for third opinion at family's request. Family dynamic issues are considerably dysfunctional. I have asked our risk management folks to put an opinion in the chart regarding who is actually the decision maker as the daughters have differing opinions and our nursing staff has been somewhat in the middle of things regarding paperwork on the chart. I anticipate a very short-term outcome. Family seems to be willing for hospice consult but do not wish him transferred to home as per yesterday's note. I think this will be a moot point in the next 24 hours.
[2021-02-05 10:32] LABS: Lymphocytes % 21 % (10-50); Monocytes % 2 % (2-9); Neutrophils % 60 % (42-76); Total Cells Counted 100
[2021-02-05 10:33] LABS: Hypochromasia 2+; Macrocytosis 1+; Platelet Estimate Moderate Decrease
[2021-02-05 10:34] LABS: Giant Platelets 2+
--- NOTE | 2021-02-05 12:13 | HMH.PULMCON ---
*Admission Date: 01/31/21 *Reason for consult:: Acute hypoxic respiratory failure *History of present illness: Mr. Santana is a 85-year-old male with a complicated clinical history and hospital course presented to [facility] last week with worsening respiratory distress and altered mentation. Patient other medical history including recent diagnosis of COVID-19 pneumonia. As per HPI patient was also discharged under hospice care secondary to worsening clinical condition from [facility] however the daughter denies such claims. From that hospital admission patient was discharged home and then gradually became obtunded and presented to the ER. Since admission patient was receiving broad-spectrum antibiotics. Patient also noted to have elevated troponins however deemed high risk for cath revascularization procedures. Patient other medical comorbidities including acute kidney injury, hyponatremia, elevated BUN. Chest x-ray still showed concerning bilateral pleural effusions airspace disease and concerning volume overload. Nasal cannula throughout the hospital admission with saturations maintained at 95% above however patient clinical status gradually worsen with decreasing oxygen saturations this morning. Continue to have leukocytosis. His blood gas from 01/31/2021 within normal limits. Examination today patient is completely unresponsive not responding to painful stimuli. He is having agonal breathing. Saturations could not be obtained. Patient's hemodynamics has been unstable for the last 48 hours and is MAP while examined is at 45. Primary team is aware of the patient's continued decline in clinical status and working with the family to pursue hospice care and have consulted pulmonary for further input. I have extensive discussions with the patient's daughter who was told by the nurse is a POA and after extensive discussions with her regarding current clinical condition possible plan of care clinical treatment options and possible outcomes patient expresses complete understanding and would like to pursue comfort care. Patient is also having another daughter who is not in agreement with current authorization and there has been a conflict on who is POA for this patient. Primary team has been working on deciding who is the power of privacy attorney for this patient and has been seeking risk-management input. [facility] History Medical History: Reports:: Cancer (Skin), Gastroesophageal Reflux Disease(GERD), Hyperlipidemia, Hypertension, Internal Pacemaker, Myocardial Infarction Denies:: Diabetes Mellitus Type 1, Diabetes Mellitus Type 2, MRSA *Have you ever received a pneumonia vaccine?: No *Have you received a flu vaccine this season?: No Other Medical History: Reports: Arthritis, Hypothyroidism Laterality Cases: Right: Arthroscopy Hip, Total Hip Replacement Other Surgeries: Yes: No Previous Surgery, Cholecystectomy, Pacemaker Amputation: No Fractures: No - *Social History Smoking Status: Never smoker Alcohol Intake: never Alcohol Intake Frequency:: other Substance Use Type: denies use *Occupational Status:: retired *Travel in the last 8 weeks: None Family Hx:: No significant family history ROS - Review of Systems Review of systems:: unable to obtain Patient obtunded not responding to verbal or painful stimuli Meds Home Medications Medication Instructions Recorded Confirmed Type allopurinol 100 mg tablet 100 mg PO DAILY 07/31/17 01/31/21 History atenolol 25 mg tablet 25 mg PO BID 07/31/17 01/31/21 History doxazosin 4 mg tablet 2 mg PO DAILY 07/31/17 01/31/21 History gabapentin 100 mg capsule 100 mg PO TID 07/31/17 02/01/21 History levothyroxine 50 mcg capsule 50 mcg PO DAILY 07/31/17 01/31/21 History potassium chloride 10 mEq 10 meq PO BID 07/31/17 01/31/21 History capsule,extended release pravastatin 40 mg tablet 40 mg PO HS 07/31/17 02/01/21 History omeprazole 40 mg capsule,delayed 40 mg PO DAILY cap 03/20/20
--- NOTE | 2021-02-05 16:00 | PC.NURSE ---
1255-spoke to Rhea Tse @ [facility]. Pt not a candidate for donation. Case #[id number]
--- NOTE | 2021-02-15 17:40 | P.DN_ITS ---
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 [employer] Maya Liu APRN Other Providers Nurse Practitioner Alice Sloan APRN Other Providers Nurse Practitioner Peter Major DO Emergency Provider ER Physician Jonathan Fitzpatrick MD Admit Provider Staff Physician Attending Provider Admitting clinician: Jonathan Fitzpatrick Consults: 01/31/21 17:22 Consult to Cardiology [CONS] Routine Consulting Provider: Cardiology Reason For Consult: nstemi 02/01/21 07:50 Consult to Case Management [CONS] Routine Reason For Consult: Eval for APS referral given multiple legal/social conflicts with family 02/01/21 15:00 Care Management Consult [Consult to Case Management] [CONS] Routine Reason For Consult: Hospice consult 02/02/21 06:43 Nutrition Consult [CONS] Routine Comment: Reason for Nutrition Consult: Other Diet Instruction Type/Other: nutritional status eval 02/04/21 08:55 Consult to Pulmonology [CONS] Routine Consulting Provider: Hanna Villanueva Reason For Consult: Consult for 2nd opinion for palliative care Pronouncing clinician: Jonathan Fitzpatrick Discharge Sum: Summary - Date and Time Date of admission: 01/31/21 18:50 Date of : 02/05/21 Time of : 12:00 - Hospital Course prior to Hospital Course Information: Patient was admitted to hospital on 01/31/2021 after being brought to the hospital by his family because of an episode of unresponsiveness at home very shortly after being discharged from an outside hospital with hospice care. In the emergency department he was found to have evidence of STEMI, shock liver, sepsis, aspiration pneumonia and was admitted to hospital for IV antibiotics. Patient was found to be in a terminal condition, multiple consultations including with cardiology and pulmonary were obtained with agreement about patient's terminal condition and futility of aggressive resuscitation, cardiac catheterization or pulmonary intervention. Multiple discussions with the family were held. Please see my progress notes for details. Family agreed that comfort care was indicated, patient was given Roxanol, antibiotics were continued, however but in spite of these measures patient from his disease, ultimately caused by COVID-19 pneumonitis and organ system failure on 02/05/2021 at noon. - Summary Details: Please see description above. - Additional Data Confirmation of as documented by pronouncing clinician: no pulse Family: at bedside Attending/PCP notified?: Yes Attending physician: Jonathan Fitzpatrick MD Was code activated?: No Autopsy requested?: No workers' compensation claims examiner notified?: No Organ bank notified?: Yes Advance directives: Yes Hosp
== END 2021-02-05 14:40 | disposition expired ==
LOC: ER 17:18 → 2ND 17:39
PROVIDERS: Internal Medicine Adolescent Medicine; Admitting Provider Internal Medicine Adolescent Medicine; Emergency Provider Family Medicine; Visit Provider Internal Medicine Adolescent Medicine
DX: I21.4 Non-ST elevation (NSTEMI) myocardial infarction (principal); A41.9 Sepsis, unspecified organism; K72.00 Acute and subacute hepatic failure without coma; J69.0 Pneumonitis due to inhalation of food and vomit; J12.82 Pneumonia due to coronavirus disease 2019; J96.00 Acute respiratory failure, unspecified whether with hypoxia or hypercapnia; E43 Unspecified severe protein-calorie malnutrition; G93.40 Encephalopathy, unspecified; N17.9 Acute kidney failure, unspecified; U09.9 Post COVID-19 condition, unspecified; Z66 Do not resuscitate; Z51.5 Encounter for palliative care; Z85.828 Personal history of other malignant neoplasm of skin; K21.9 Gastro-esophageal reflux disease without esophagitis; I10 Essential (primary) hypertension; E03.9 Hypothyroidism, unspecified; Y95 Nosocomial condition; Z68.23 Body mass index [BMI] 23.0-23.9, adult; I73.9 Peripheral vascular disease, unspecified; Z79.02 Long term (current) use of antithrombotics/antiplatelets
CPT/HCPCS: 36415; 70450; 71045; 80048; 80053; 80202; 81001; 82803; 83605; 83735; 84484; 85007; 85025; 85610; 93005; 93041; 93306; 94640; 94760; 94761; 96365; 99285; C9803; J2405; U0003; U0005